=== PATIENT | female | born 1975 | race Caucasian/White ===

== ENCOUNTER 2017-06-07 23:13 | Emergency (ER) | payer MEDICARE ==
[2017-06-07 23:21] VITALS: TEMP 98
[2017-06-08] MEDS ORDERED: AMOXIC-POT CLAV 875MG STARTER 2 EACH TABLET PO STA (00:40)
--- NOTE | 2017-06-08 00:41 | ED ---
Animal Bite HPI - General Chief Complaint: Animal Bite Stated Complaint: R hand laceration Time Seen by Provider: 06/07/17 23:47 Source: patient, family Mode of arrival: ambulatory Limitations: no limitations - History of Present Illness Initial Comments: 42-year-old female patient presents for evaluation of a dog bite to the middle finger on her right hand. Patient states that she was attempting to break up a fight between her new dog and cat when the dog bit her. She states that this occurred around 8 PM. She states that she did clean the wounds however was unable to get the proximal wound to stop bleeding. States she did hold pressure , elevated the hand, and applied ice however this did not work. She denies any use of anticoagulants or blood thinners. She denies any limited range of motion to the finger. She denies any significant pain. She states the animal is up-to-date on his vaccinations. Patient denies any headache, neck pain, back pain, chest pain, shortness of breath, dizziness, weakness, abdominal pain , nausea, vomiting, or difficulties with bowel movements or urination. - Related Data Previous Rx's Medication Instructions Recorded Amoxic-Pot Clav 875-125Mg 1 tab PO Q12HR #20 tablet 06/08/17 [Augmentin 875-125] Allergies Allergy/AdvReac Type Severity Reaction Status Date / Time red dye Allergy Rash/Hives Verified 06/07/17 23:21 Review of Systems ROS Statement: Those systems with pertinent positive or pertinent negative responses have been documented in the HPI. ROS Other: All systems not noted in ROS Statement are negative. Past Medical History Past Medical History: No Reported History History of Any Multi-Drug Resistant Organisms: None Reported Past Surgical History: Section, Tonsillectomy Past Psychological History: No Psychological Hx Reported Smoking Status: Current every day smoker Past Alcohol Use History: None Reported Past Drug Use History: None Reported General Exam Limitations: no limitations General appearance: alert, in no apparent distress, other (This is a well- developed, well-nourished adult female patient in no acute distress. Vital signs upon presentation her temperature 90.8F, pulse 100, respirations 20, blood pressure 169/84, pulse ox 100% on room air.) Eye exam: Present: normal appearance, PERRL, EOMI. Absent: scleral icterus, conjunctival injection, periorbital swelling Respiratory exam: Present: normal lung sounds bilaterally. Absent: respiratory distress, wheezes, rales, rhonchi, stridor Cardiovascular Exam: Present: regular rate, normal rhythm, normal heart sounds. Absent: systolic murmur, diastolic murmur, rubs, gallop, clicks Extremities exam: Present: full ROM, tenderness (Tenderness over the distal aspect of the third finger on the right hand.), normal capillary refill, other ( 20.5 cm lacerations noted to the distal third finger on the right hand. Proximal wound does exhibit some bleeding. Skin otherwise is pink, warm, and dry. Cap refill less than 3 seconds. Patient exhibits full range of motion without pain or limitation. No bony tenderness. Radial pulse is intact and 2+ bilaterally.). Absent: pedal edema, joint swelling, calf tenderness Neurological exam: Present: alert, oriented X3, CN II-XII intact Psychiatric exam: Present: normal affect, normal mood Skin exam: Present: warm, dry, intact, normal color. Absent: rash Course Vital Signs 06/07/17 06/08/17 23:17 01:11 Temperature 98 F 98 F Pulse Rate 100 84 Respiratory 20 18 Rate Blood Pressure 169/84 137/75 O2 Sat by Pulse 100 97 Oximetry Medical Decision Making - Medical Decision Making 42-year-old female patient presents for evaluation after she was bit by her dog and unable to get the bleeding to stop. Wounds to the third finger right hand were irrigated extensively. Pressure was held over the proximal laceration for 15 minutes. Monitored for approximately 30 minutes without any further bleeding. Patient was given a dressing and a splint for comfort. She was started on Augmentin here in the department and given a prescription. She is educated regarding signs or symptoms of infection. She is instructed to follow- up with her primary care physician for recheck in 1-2 days. She is instructed to return here immediately for any new, worsening, or concerning symptoms. She verbalized understanding and agree with this plan. Disposition Clinical Impression: Dog bite of middle finger Disposition: HOME SELF-CARE Condition: Good Instructions: Animal Bite (ED) Additional Instructions: Use splint for protection. Take medications as directed. Follow-up with her primary care physician for recheck in 1-2 days. Monitor for signs or symptoms of infection including redness, increased swelling, drainage of pus, fever, or chills. Return here immediately for any new, worsening, or concerning symptoms. Prescriptions: Amoxic-Pot Clav 875-125Mg [Augmentin 875-125] 1 tab PO Q12HR #20 tablet Referrals: None,Stated [Primary Care Provider] - 1-2 days Time of Disposition: 00:41
[2017-06-08 01:12] VITALS: BP 137/75; PULSE 84; RESP 18
== END 2017-06-08 01:12 | disposition home or self-care (01) ==
LOC: EC 23:13
DX: S61.252A Open bite of right middle finger without damage to nail, initial encounter (principal); F17.200 Nicotine dependence, unspecified, uncomplicated; Z91.048 Other nonmedicinal substance allergy status; W54.0XXA Bitten by dog, initial encounter; Y93.89 Activity, other specified
CPT/HCPCS: 99283

== ENCOUNTER → 2019-03-15 | Outpatient (CLI) | payer MEDICARE ==
--- NOTE | 2019-03-15 15:59 | MR ---
EXAMINATION TYPE: MR brain wo con DATE OF EXAM: 03/15/2019 COMPARISON: NONE HISTORY: Vasovagal syncope per order. Abnormal EKG per patient. TECHNIQUE: Multiplanar, multisequence imaging of the brain and brainstem is performed without IV cont rast. FINDINGS: Diffusion weighted images demonstrate no evidence of a recent infarct or other diffusion abnormality. There is no worrisome extra-axial fluid collection. There is mild ventricular and sulcal prominence. There is wear focus of T2 hyperintensity scattered throughout the white matter. Less than 5 lesions a re felt present. Midline structures demonstrate empty sella morphology. The craniocervical junction appears within no rmal limits. Normal vascular flow voids are present. Nasal septum is slightly deviated to right of mi dline. There is mild mucosal thickening involving anterior ethmoid sinuses bilaterally. Remainder par anasal sinuses are clear. Mild slight symmetric prominence of CSF surrounding optic nerves is seen bi laterally. Globes remain normal rounded shape without suspicious outpouching to suggest intracranial hypotension. IMPRESSION: Mild generalized cerebral atrophy with mild to minimal chronic small vessel ischemic [place], other findings as noted above.
--- NOTE | 2019-03-16 07:08 | US ---
EXAMINATION TYPE: US carotid duplex BILAT DATE OF EXAM: 03/15/2019 COMPARISON: NONE CLINICAL HISTORY: R55 Vasovagal Syncope. Syncope EXAM MEASUREMENTS: RIGHT: Peak Systolic Velocity (PSV) cm/sec ----- Right CCA: 69.2 ----- Right ICA: 147.0 ----- Right ECA: 85.2 ICA/CCA ratio: 2.1 RIGHT: End Diastole cm/sec ----- Right CCA: 14.0 ----- Right ICA: 66.2 ----- Right ECA: 15.4 LEFT: Peak Systolic Velocity (PSV) cm/sec ----- Left CCA: 91.0 ----- Left ICA: 151.2 ----- Left ECA: 73.7 ICA/CCA ratio: 1.7 LEFT: End Diastole cm/sec ----- Left CCA: 31.4 ----- Left ICA: 60.7 ----- Left ECA: 22.0 VERTEBRALS (direction of flow): Right Vertebral: Antegrade Left Vertebral: Antegrade Rhythm: Normal Grayscale atheromatous plaquing is noted. IMPRESSION: Stenosis of 50-69% within both internal carotid arteries, right greater than left. CTA n hazel could more accurately assess the degree of stenosis. Criteria for Assigning % of Stenosis / Diameter reduction (Estimation based on the indirect measurements of the internal carotid artery velocities (ICA PSV). 1. Normal (no stenosis)=ICA PSV < 125 cm/s: ratio < 2.0: ICA EDV<40 cm/s. 2. Less than 50% stenosis=ICA PSV < 125 cm/s: ratio < 2.0: ICA EDV<40 cm/s. 3. 50 to 69% stenosis=ICA PSV of 125 to 230 cm/s: ration 2.0 ? 4.0: ICA EDV 40-100 cm/s. 4. Greater than 70% stenosis to near occlusion= ICA PSV > 230 cm/s: ratio > 4.0: ICA EDV > 100 cm/s. 5. Near occlusion= ICA PSV velocities may be low or undetectable: variable ratio and ICA EDV. 6. Total occlusion=unable to detect flow.
== END | disposition home or self-care (01) ==
LOC: RADMRIMAIN 15:11
PROVIDERS: ATTEND Psychiatry & Neurology Neurology
DX: G31.9 Degenerative disease of nervous system, unspecified (principal); I67.82 Cerebral ischemia; I65.23 Occlusion and stenosis of bilateral carotid arteries
CPT/HCPCS: 70551; 93880

== ENCOUNTER → 2019-04-13 | Outpatient (CLI) | payer MEDICARE ==
--- NOTE | 2019-04-13 17:28 | CT ---
EXAMINATION TYPE: CT angio neck DATE OF EXAM: 04/13/2019 HISTORY: dizziness, vertigo, syncopal episode. abnormal carotid US. COMPARISON: Ultrasound carotid arteries 03/15/2019 CT DLP: 857.7 mGycm. Automated Exposure Control for Dose Reduction was Utilized. TECHNIQUE: CTA scan of the neck is performed with IV Contrast, patient injected with 50cc mL of Isov ue 370, axial images are obtained, coronal and sagittal reformatted images are reviewed. Three-D alex nstructed images are created on an independent workstation and reviewed. Source images are reviewed. FINDINGS: Carotid/Vascular Structures: There is a three-vessel arch. The common carotid arteries appear normal. Significant narrowing of the internal carotid arteries are not identified on the Three-D reconstruct ed images performed on a separate computer by the technologist. Source images are reviewed. The verte bral arteries are codominant. No significant narrowing at the bifurcation is evident on the source im ages. Elevated velocities on the ultrasound cannot be explained on the basis of this exam. Other: Lung apices within the [id number] are clear. Mild degenerative changes within the [place] cervical spine. Mild degenerative disc change may be present. IMPRESSION: 1. No flow-limiting stenosis bilateral carotid bifurcations.
== END | disposition home or self-care (01) ==
LOC: RADCTMAIN 14:12
PROVIDERS: ATTEND Psychiatry & Neurology Neurology
DX: R55 Syncope and collapse (principal); R93.89 Abnormal findings on diagnostic imaging of other specified body structures
CPT/HCPCS: 70498; Q9967

== ENCOUNTER 2019-08-23 15:54 | Emergency (ER) | payer MEDICARE ==
[2019-08-23 16:15] VITALS: RESP 20; TEMP 97.4
[2019-08-23] MEDS ORDERED: SODIUM CHLORIDE 0.9% 500 ML 500 ML IV STA (16:51)
[2019-08-23] MEDS ORDERED: FAMOTIDINE 20 MG/2 ML VIAL IV STA (16:51)
[2019-08-23] MEDS ORDERED: SODIUM CHLORIDE 0.9% 1,000 ML IV STA (16:51)
[2019-08-23] MEDS ORDERED: ONDANSETRON 4 MG/2 ML VIAL IVP STA ×2 (16:51→18:05)
--- NOTE | 2019-08-23 16:55 | ED ---
General Adult HPI - General Chief complaint: Nausea/Vomiting/Diarrhea Stated complaint: Vomiting Time Seen by Provider: 08/23/19 16:38 Source: patient, family, RN notes reviewed Mode of arrival: wheelchair Limitations: language barrier (Patient reads lips however is able to communicate well.) - History of Present Illness Initial comments: patient is a pleasant 44-year-old female presenting to the emergency department with nausea vomiting. Onset was around 10 AM. Patient has had multiple episodes of vomiting and remains nauseated. Patient has had similar symptoms every couple weeks the past 2 years.patient has seen her primary care physician or this and has been told is related to menopause. Patient has not seen a senior systems software engineer for this however. No significant abdominal pain. Occasional cramping that is mild. No constipation or diarrhea. No fevers. - Related Data Previous Rx's Medication Instructions Recorded Amoxic-Pot Clav 875-125Mg 1 tab PO Q12HR #20 tablet 06/08/17 [Augmentin 875-125] Allergies Allergy/AdvReac Type Severity Reaction Status Date / Time red dye Allergy Rash/Hives Verified 08/23/19 16:10 Review of Systems ROS Statement: Those systems with pertinent positive or pertinent negative responses have been documented in the HPI. ROS Other: All systems not noted in ROS Statement are negative. Constitutional: Denies: fever Eyes: Denies: eye pain ENT: Denies: ear pain Respiratory: Denies: cough Cardiovascular: Denies: chest pain Endocrine: Denies: fatigue Gastrointestinal: Reports: nausea, vomiting Genitourinary: Denies: dysuria Musculoskeletal: Denies: back pain Skin: Denies: rash Neurological: Denies: weakness Past Medical History Past Medical History: No Reported History Additional Past Medical History / Comment(s): hearing impaired (reads lips) History of Any Multi-Drug Resistant Organisms: None Reported Past Surgical History: Section, Tonsillectomy Past Psychological History: No Psychological Hx Reported Smoking Status: Current some day smoker Past Alcohol Use History: None Reported Past Drug Use History: None Reported General Exam Limitations: no limitations General appearance: alert, in no apparent distress Head exam: Present: normocephalic Eye exam: Present: normal appearance Neck exam: Present: normal inspection Respiratory exam: Present: normal lung sounds bilaterally Cardiovascular Exam: Present: regular rate, normal rhythm Expanded Peripheral pulses: 2+: Dorsalis Pedis (R), Dorsalis Pedis (L) GI/Abdominal exam: Present: soft, normal bowel sounds. Absent: distended, tenderness, guarding, rebound, rigid, pulsatile mass Extremities exam: Present: normal inspection Neurological exam: Present: alert Psychiatric exam: Present: normal affect, normal mood Skin exam: Present: normal color Course Vital Signs 08/23/19 16:11 Temperature 97.4 F L Pulse Rate 87 Respiratory 20 Rate Blood Pressure 159/83 O2 Sat by Pulse 97 Oximetry Medical Decision Making - Medical Decision Making Patient reevaluated and resting comfortably in bed. Patient is no longer vomiting however still has some mild nausea. Patient is receptive to repeat medication however request discharge home. Patient and family updated on results. - Lab Data Result diagrams: 08/23/19 17:00 08/23/19 17:00 Lab Results 08/23/19 08/23/19 08/23/19 Range/Units 17:00 17:00 17:00 WBC 9.4 (3.8-10.6) k/uL RBC 5.25 (3.80-5.40) m/uL Hgb 15.8 (11.4-16.0) gm/dL Hct 46.7 H (34.0-46.0) % MCV 88.9 (80.0-100.0) fL MCH 30.1 (25.0-35.0) pg MCHC 33.9 (31.0-37.0) g/dL RDW 13.1 (11.5-15.5) % Plt Count 426 (150-450) k/uL Neutrophils % 80 % Lymphocytes % 13 % Monocytes % 5 % Eosinophils % 1 % Basophils % 0 % Neutrophils # 7.5 (1.3-7.7) k/uL Lymphocytes # 1.3 (1.0-4.8) k/uL Monocytes # 0.5 (0-1.0) k/uL Eosinophils # 0.1 (0-0.7) k/uL Basophils # 0.0 (0-0.2) k/uL Sodium 141 (137-145) mmol/L Potassium 4.3 (3.5-5.1) mmol/L Chloride 108 H (98-107) mmol/L Carbon Dioxide 23 (22-30) mmol/L Anion Gap 10 mmol/L BUN 7 (7-17) mg/dL Creatinine 0.62 (0.52-1.04) mg/dL Est GFR (CKD-EPI)AfAm >90 (>60 ml/min/1.73 sqM) Est GFR (CKD-EPI)NonAf >90 (>60 ml/min/1.73 sqM) Glucose 114 H (74-99) mg/dL Calcium 10.0 (8.4-10.2) mg/dL Total Bilirubin 0.7 (0.2-1.3) mg/dL AST 20 (14-36) U/L ALT 15 (4-34) U/L Alkaline Phosphatase 95 (38-126) U/L Total Protein 7.7 (6.3-8.2) g/dL Albumin 4.5 (3.5-5.0) g/dL Amylase 40 (30-110) U/L Lipase 45 (23-300) U/L Urine Color Light Brown Urine Appearance Cloudy H (Clear) Urine pH 8.5 H (5.0-8.0) Ur Specific [place] 1.020 (1.001-1.035) Urine Protein 3+ H (Negative) Urine Glucose (UA) Negative (Negative) Urine Ketones 2+ H (Negative) Urine Blood Large H (Negative) Urine Nitrite Negative (Negative) Urine Bilirubin Negative (Negative) Urine Urobilinogen <2.0 (<2.0) mg/dL Ur Leukocyte Esterase Small H (Negative) Urine RBC >182 H (0-5) /hpf Urine WBC 32 H (0-5) /hpf Ur Squamous Epith Cells 11 H (0-4) /hpf Urine Mucus Moderate H (None) /hpf Disposition Clinical Impression: Dehydration, Vomiting Disposition: HOME SELF-CARE Condition: Stable Instructions (If sedation given, give patient instructions): Acute Nausea and Vomiting (ED) Additional Instructions: please follow-up with primary care physician in the next couple days for recheck. Also consider follow-up with gastroenterology for further evaluation. Return for uncontrolled vomiting, abdominal pain or fever, worsening symptoms or other concerns. Is patient prescribed a controlled substance at d/c from ED?: No Referrals: Nik Pratt DO [Primary Care Provider] - 1-2 days Leslie Sher MD [STAFF PHYSICIAN] - 1-2 days Time of Disposition: 18:06
[2019-08-23 17:18] LABS: Basophils % (A) 0 %; Eosinophils # (A) 0.1 k/uL (0-0.7); Eosinophils % (A) 1 %; HCT 46.7 % (34.0-46.0); HGB 15.8 gm/dL (11.4-16.0); Lymphocytes # (A) 1.3 k/uL (1.0-4.8); Lymphocytes % (A) 13 %; MCH 30.1 pg (25.0-35.0); MCHC 33.9 g/dL (31.0-37.0); MCV 88.9 fL (80.0-100.0); Mean Platelet Volume 7.5; Monocytes # (A) 0.5 k/uL (0-1.0); Monocytes % (A) 5 %; Neutrophils # (A) 7.5 k/uL (1.3-7.7); Neutrophils % (A) 80 %; Platelet Count 426 k/uL (150-450); RBC 5.25 m/uL (3.80-5.40); RDW 13.1 % (11.5-15.5); WBC 9.4 k/uL (3.8-10.6)
[2019-08-23 17:21] LABS: Appearance,Urine Cloudy (Clear); Bilirubin,Urine Negative (Negative); Blood,Urine Large (Negative); Color,Urine Light Brown; Glucose,Urine (UA) Negative (Negative); Ketones,Urine 2+ (Negative); Leukocyte Esterase,Urine Small (Negative); Mucus,Urine Moderate /hpf; Nitrite,Urine Negative (Negative); PH, Urine 8.5 (5.0-8.0); Protein,Urine 3+ (Negative); RBC,Urine >182 /hpf (0-5); Squamous Epithelial Cell,Urine 11 /hpf (0-4); Urobilinogen,Urine <2.0 mg/dL (<2.0); WBC,Urine 32 /hpf (0-5)
[2019-08-23 17:22] LABS: ALT 15 U/L (4-34); AST 20 U/L (14-36); African American GFR (CKD) >90 (>60 ml/min/1.73 sqM); Albumin 4.5 g/dL (3.5-5.0); Alkaline Phosphatase 95 U/L (38-126); Amylase 40 U/L (30-110); Anion Gap 10 mmol/L; Blood Urea Nitrogen 7 mg/dL (7-17); Carbon Dioxide 23 mmol/L (22-30); Chloride 108 mmol/L (98-107); Glucose 114 mg/dL (74-99); Non-African American GFR(CKD) >90 (>60 ml/min/1.73 sqM); Potassium 4.3 mmol/L (3.5-5.1); Sodium 141 mmol/L (137-145); Total Bilirubin 0.7 mg/dL (0.2-1.3); Total Protein 7.7 g/dL (6.3-8.2)
[2019-08-23] MEDS ORDERED: ONDANSETRON 4 MG ODT STARTER PACK 2 TAB BTL PO STA (18:05)
[2019-08-23 18:30] VITALS: BP 149/84; PULSE 82
== END 2019-08-23 18:34 | disposition home or self-care (01) ==
LOC: EC 15:54
DX: E86.0 Dehydration (principal); R11.2 Nausea with vomiting, unspecified; H93.01 Transient ischemic deafness; F17.200 Nicotine dependence, unspecified, uncomplicated; Z78.0 Asymptomatic menopausal state; Z91.041 Radiographic dye allergy status
CPT/HCPCS: 36415; 80053; 82150; 83690; 85025; 81001; 87086; 96374; 96375; 96376; 96361; 99284; J2405; S0119

== ENCOUNTER 2019-10-08 23:30 | Emergency (ER) | payer MEDICARE ==
[2019-10-08] MEDS ORDERED: HYDROmorphone 1 MG/ML 1 ML SYRINGE IM STA (23:39)
[2019-10-08 23:40] VITALS: BP 142/87; PULSE 108; RESP 18; TEMP 98.3
[2019-10-08] MEDS ORDERED: LIDOCAINE 1%-EPI 1:100,000 20 ML VIAL SQ STA (23:41)
--- NOTE | 2019-10-08 23:44 | ED ---
Upper Extremity HPI - General Stated Complaint: L Arm Pain Time Seen by Provider: 10/08/19 23:35 Source: patient, family, RN notes reviewed, old records reviewed Mode of arrival: wheelchair Limitations: no limitations - History of Present Illness Initial Comments: This is a 44-year-old female to the ER with Left wrist pain. Patient is deaf so poor historian history of presented for family member patient has severe severe left wrist pain after fall patient a mechanical fall trip and fall patient did fall over the deltoid. Patient did not hit her head no loss of consciousness no blood thinners. MD Complaint: Injury to:: left, wrist -: minutes(s) Other Extremity Injury: Wrist: Left Other Injuries: none Handedness: right Place: home Severity scale (1-10): 10 Improves With: immobilization Worsens With: none Context: fall Associated Symptoms: denies other symptoms - Related Data Previous Rx's Medication Instructions Recorded Amoxic-Pot Clav 875-125Mg 1 tab PO Q12HR #20 tablet 06/08/17 [Augmentin 875-125] Allergies Allergy/AdvReac Type Severity Reaction Status Date / Time No Known Allergies Allergy Verified 10/08/19 23:40 Review of Systems ROS Statement: Those systems with pertinent positive or pertinent negative responses have been documented in the HPI. ROS Other: All systems not noted in ROS Statement are negative. Past Medical History Past Medical History: No Reported History Additional Past Medical History / Comment(s): hearing impaired (reads lips) History of Any Multi-Drug Resistant Organisms: None Reported Past Surgical History: Section, Tonsillectomy Past Psychological History: No Psychological Hx Reported Smoking Status: Current some day smoker Past Alcohol Use History: None Reported Past Drug Use History: None Reported General Exam Limitations: no limitations General appearance: alert, in no apparent distress, anxious Head exam: Present: atraumatic, normocephalic, normal inspection Eye exam: Present: normal appearance, PERRL, EOMI. Absent: scleral icterus, conjunctival injection, periorbital swelling ENT exam: Present: normal exam, mucous membranes moist Neck exam: Present: normal inspection. Absent: tenderness, meningismus, lymphadenopathy Respiratory exam: Present: normal lung sounds bilaterally. Absent: respiratory distress, wheezes, rales, rhonchi, stridor Cardiovascular Exam: Present: normal rhythm, tachycardia, normal heart sounds. Absent: systolic murmur, diastolic murmur, rubs, gallop, clicks GI/Abdominal exam: Present: soft, normal bowel sounds. Absent: distended, tenderness, guarding, rebound, rigid Extremities exam: Present: normal inspection, full ROM, tenderness (Left Wrist), normal capillary refill, other (deformity). Absent: pedal edema, joint swelling, calf tenderness Back exam: Present: normal inspection Neurological exam: Present: alert, oriented X3, CN II-XII intact Psychiatric exam: Present: normal affect, normal mood Skin exam: Present: warm, dry, intact, normal color. Absent: rash Course Vital Signs 10/08/19 23:38 Temperature 98.3 F Pulse Rate 108 H Respiratory 18 Rate Blood Pressure 142/87 O2 Sat by Pulse 96 Oximetry - Reevaluation(s) Reevaluation #1: 10/09/19 00:21 Records reviewed Reevaluation #2: 10/09/19 00:21 patient has Pain control Procedures - Orthopedic Fracture Reduction Fracture #1 Consent Obtained: verbal consent Side: left Fracture Reduction Location: radius, ulna Analgesia: hematoma block Technique: direct manipulation Post Reduction X-rays Demonstrate: anatomical reduction Post-Reduction Neuro Exam: intact Post-Reduction Vascular Exam: intact Splint Applied: Yes Patient Tolerated Procedure: well Medical Decision Making - Medical Decision Making 44 female status post fall patient has left radius fracture with comminution and displacement fracture is relocated here in the ER splinted patient discharged home with pain control - Radiology Data Radiology results: report reviewed (X-ray left wrist shows significant comminuted and angulated fracture, postreduction films improved), image reviewed Disposition Clinical Impression: Fracture of left distal radius, Fall Disposition: HOME SELF-CARE Condition: Good Instructions (If sedation given, give patient instructions): Arm Fracture in Adults (ED) Is patient prescribed a controlled substance at d/c from ED?: No Referrals: Roosevelt Ward DO [Doctor of Osteopathic Medicine] - 1-2 days
--- NOTE | 2019-10-08 23:52 | XR ---
EXAMINATION TYPE: XR wrist complete LT DATE OF EXAM: 10/08/2019 COMPARISON: NONE HISTORY: Left wrist pain. Fall. TECHNIQUE: 3 views FINDINGS: There is impacted comminuted transverse fracture of the distal radial metaphysis. There is mild anter ior angulation at the fracture site. There is no dislocation. Carpal bones appear intact. Metacarpals are intact. IMPRESSION: Comminuted impacted angulated fracture distal radius.
[2019-10-09] MEDS ORDERED: HYDROcodone/APAP 5-325MG 1 EACH TAB PO STA (00:24)
[2019-10-09] MEDS ORDERED: ACET/COD 300 MG/30 MG STARTER PACK 6 TAB BTL PO STA (00:24)
--- NOTE | 2019-10-09 00:26 | XR ---
EXAMINATION TYPE: XR wrist limited LT DATE OF EXAM: 10/09/2019 COMPARISON: Yesterday HISTORY: Post reduction TECHNIQUE: FINDINGS: 2 views were obtained and show satisfactory reduction of the comminuted impacted distal rad ius fracture. Fracture line extends to the radiocarpal joint. There is no dislocation. There is satis factory alignment. IMPRESSION: Satisfactory reduction. There is large fracture fragment extending posteriorly into the s oft tissues
[2019-10-09] MEDS ORDERED: ONDANSETRON 4 MG ODT STARTER PACK 2 TAB BTL PO STA (00:27)
[2019-10-09] MEDS ORDERED: ONDANSETRON 4 MG TAB PO STA (00:27)
== END 2019-10-09 00:42 | disposition home or self-care (01) ==
LOC: EC 23:30
DX: S52.592A Other fractures of lower end of left radius, initial encounter for closed fracture (principal); H91.90 Unspecified hearing loss, unspecified ear; F17.200 Nicotine dependence, unspecified, uncomplicated; W01.0XXA Fall on same level from slipping, tripping and stumbling without subsequent striking against object, initial encounter
CPT/HCPCS: 73100; 73110; 99284; 25605; 96372; J1170; S0119

== ENCOUNTER 2019-10-09 14:01 | Emergency (ER) | payer MEDICARE ==
[2019-10-09 14:28] VITALS: BP 173/87; PULSE 106; RESP 20; TEMP 98.2
[2019-10-09] MEDS ORDERED: ONDANSETRON 4 MG/2 ML VIAL IM STA (14:50)
[2019-10-09] MEDS ORDERED: KETOROLAC 30 MG/ML 1 ML VIAL IM STA (14:50)
--- NOTE | 2019-10-09 15:15 | XR ---
EXAMINATION TYPE: XR wrist complete LT DATE OF EXAM: 10/09/2019 CLINICAL HISTORY: Left wrist pain after reduction yesterday. TECHNIQUE: Frontal, lateral and oblique images of the left wrist are obtained. COMPARISON: None FINDINGS: Similar alignment of the comminuted distal radial metaphyseal fracture with overlying soft tissue swelling that has increased from the prior. Mild positive ulnar variance. No additional fractu re seen. Overlying casting or splinting material. IMPRESSION: Similar alignment of the comminuted known distal metaphyseal fracture of the left wrist w ith increased soft tissue swelling in comparison to the prior of 10/09/2019.
--- NOTE | 2019-10-09 15:17 | XR ---
EXAMINATION TYPE: XR shoulder complete LT DATE OF EXAM: 10/09/2019 CLINICAL HISTORY: Left shoulder pain after injury TECHNIQUE: Three views of the left shoulder are obtained. COMPARISON: None. FINDINGS: The left shoulder appears in internal rotation on both views that could relate to patient p ain or posterior dislocation. There is overlap of the humeral head with the scapula on the Y view and therefore dislocation is unlikely. Osseous mineralization is within normal limits. Soft tissues are unremarkable. IMPRESSION: External rotation left shoulder x-ray is recommended to ensure no posterior dislocation, although unlikely.
--- NOTE | 2019-10-09 15:29 | ED ---
General Adult HPI - General Chief complaint: Fall Stated complaint: Arm pain Time Seen by Provider: 10/09/19 14:30 Source: patient, RN notes reviewed Mode of arrival: ambulatory Limitations: no limitations - History of Present Illness Initial comments: 44-year-old female presents to the emergency department for left wrist pain. Patient states that yesterday she tripped over her son's headphones and fell back onto her left wrist. No other injuries. Patient states this was reduced yesterday however today she thinks the cast is too tight. States that she has numbness and tingling in the fingers of the left hand. States the pain has increased. Patient states that she has vomited because of the pain medication. Patient fell again today after she hit her arm and tripped getting out of bed. This caused her left shoulder pain as well.Patient has no other complaints at this time including shortness of breath, chest pain, abdominal pain, nausea or vomiting, headache, or visual changes. - Related Data Previous Rx's Medication Instructions Recorded Amoxic-Pot Clav 875-125Mg 1 tab PO Q12HR #20 tablet 06/08/17 [Augmentin 875-125] HYDROcodone/APAP 5-325MG [[place] 1 tab PO Q6HR PRN #10 tab 10/09/19 5-325] Allergies Allergy/AdvReac Type Severity Reaction Status Date / Time No Known Allergies Allergy Verified 10/09/19 14:26 Review of Systems ROS Statement: Those systems with pertinent positive or pertinent negative responses have been documented in the HPI. ROS Other: All systems not noted in ROS Statement are negative. Past Medical History Past Medical History: No Reported History Additional Past Medical History / Comment(s): hearing impaired (reads lips) History of Any Multi-Drug Resistant Organisms: None Reported Past Surgical History: Section, Tonsillectomy Past Psychological History: No Psychological Hx Reported Smoking Status: Current some day smoker Past Alcohol Use History: None Reported Past Drug Use History: None Reported General Exam - General Exam Comments Initial Comments: Splint currently applied. Fingers are edematous in the left hand with minimal sensation, however capillary refill less than 2 seconds. Splint was unwrapped and swelling improved in the left hand. Capillary refill less than 2 seconds. Radial pulses 2+ in the left upper extremity. NV intact. No lacerations noted of the left wrist. This was resplinted Limitations: no limitations General appearance: alert, in no apparent distress Head exam: Present: atraumatic, normocephalic, normal inspection Eye exam: Present: normal appearance, PERRL, EOMI. Absent: scleral icterus, conjunctival injection, periorbital swelling ENT exam: Present: normal exam, mucous membranes moist Neck exam: Present: normal inspection, full ROM. Absent: tenderness, meningismus, lymphadenopathy Respiratory exam: Present: normal lung sounds bilaterally. Absent: respiratory distress, wheezes, rales, rhonchi, stridor Cardiovascular Exam: Present: regular rate, normal rhythm, normal heart sounds. Absent: systolic murmur, diastolic murmur, rubs, gallop, clicks Course Vital Signs 10/09/19 14:23 Temperature 98.2 F Pulse Rate 106 H Respiratory 20 Rate Blood Pressure 173/87 O2 Sat by Pulse 95 Oximetry Procedures - Orthopedic Splinting/Casting Injury #1 Side: left Upper Extremity Injury Location: wrist Upper Extremity Immobilizer: volar splint Additional Comments: Neurovascular status intact after splint applied Medical Decision Making - Medical Decision Making X-rays from yesterday were reviewed. Prereduction x-ray showed a comminuted impacted angulated fracture of the distal radius. Postreduction x-ray of the left wrist shows a satisfactory reduction with large fracture fragment extending posteriorly into the soft tissues. 44-year-old presents for increased pain in the left wrist. Patient thinks splint is wrapped too tightly. Patient has edematous fingers of the left hand with diminished sensation however capillary refill less than 2 seconds. Splint was unwrapped. Patient had significant improvement in symptoms. Full sensation in fingers capillary refill less than 2 seconds and radial pulse 2+. Patient able to move all fingers. Splint was reapplied and loosely wrapped. Wrist x- ray repeated today shows similar alignment of the comminuted known distal metaphyseal fracture of the left wrist with increased soft tissue swelling in comparison. She was given Zofran and Toradol here in the emergency department. She will continue pain medications at home. She'll follow up with orthopedics tomorrow. She'll return if she has any worsening symptoms. X-ray of the left shoulder shows external rotation recommended to ensure no posterior dislocation although unlikely. X-ray of the left shoulder was repeated, no evidence of dislocation. External rotation appears appropriate. Disposition Clinical Impression: Distal radius fracture, left Disposition: HOME SELF-CARE Condition: Good Instructions (If sedation given, give patient instructions): Wrist Fracture in Adults (ED) Additional Instructions: Take Glady as needed for pain. Do not drive or operative machinery while taking this. Please follow up with orthopedics first thing tomorrow morning. If patient has any worsening symptoms return here immediately to the emergency department. Prescriptions: HYDROcodone/APAP 5-325MG [Glady 5-325] 1 tab PO Q6HR PRN #10 tab PRN Reason: Pain Is patient prescribed a controlled substance at d/c from ED?: Yes When asked, does pt state using other controlled substances?: No If prescribed controlled substance>3 days was MAPS reviewed?: Prescribed <3 Days If opioid is for acute pain is fill amount 7 days or less?: Yes If Rx opioid, was Start Talking consent form obtained?: Yes Referrals: Nik Pratt DO [Primary Care Provider] - 1-2 days Roosevelt Ward DO [Doctor of Osteopathic Medicine] - 1-2 days Time of Disposition: 16:05
--- NOTE | 2019-10-09 15:50 | XR ---
EXAMINATION TYPE: XR shoulder limited LT DATE OF EXAM: 10/09/2019 CLINICAL HISTORY: Single view TECHNIQUE: Single frontal view of the left shoulder in external rotation. COMPARISON: Left shoulder radiographs dated 10/09/2019 FINDINGS: There is appropriate external rotation excluding shoulder dislocation. IMPRESSION: No evidence of dislocation of the left shoulder. External rotation appears appropriate.
[2019-10-09] MEDS ORDERED: MORPHINE SULFATE 4 MG/ML SYRINGE IM STA (15:53)
== END 2019-10-09 16:10 | disposition home or self-care (01) ==
LOC: EC 14:01
DX: Z46.89 Encounter for fitting and adjustment of other specified devices (principal); S52.592D Other fractures of lower end of left radius, subsequent encounter for closed fracture with routine healing; M25.512 Pain in left shoulder; H91.93 Unspecified hearing loss, bilateral; F17.200 Nicotine dependence, unspecified, uncomplicated; W01.0XXD Fall on same level from slipping, tripping and stumbling without subsequent striking against object, subsequent encounter; W18.09XA Striking against other object with subsequent fall, initial encounter; Y93.89 Activity, other specified
CPT/HCPCS: 73030; 73020; 73110; 99284; 96372 ×3; J2270; J2405; J1885

== ENCOUNTER 2019-10-14 14:18 | Day surgery (SDC) | payer MEDICARE ==
[2019-10-12 15:00] VITALS: BMI 34.4
[~2019-10-14 14:18] MED LIST: DEXAMETHASONE SOD PHOSPHATE 10 MG/ML 1 ML VIAL IV ONE; LACTATED RINGERS 1,000 ML IV SCH; LIDOCAINE 1% 20 ML VIAL (10MG/ML) FOR IV START INTRADERMA PRN; SCOPOLAMINE 1.5MG/72HR PATCH TRANSDERM ONE
[2019-10-14 14:53] VITALS: TEMP 98.4
[2019-10-14] MEDS ORDERED: ONDANSETRON 4 MG/2 ML VIAL IVP ONE ×3 (15:10→21:45)
[2019-10-14 15:19] LABS: Glucose,Whole Blood 96 mg/dL (75-99)
[2019-10-14] MEDS ORDERED: MIDAZOLAM 2 MG/2 ML VIAL IV ONE (15:24)
[2019-10-14] MEDS ORDERED: PROPOFOL 10 MG/ML 20 ML VIAL IV ONE (15:36)
[2019-10-14] MEDS ORDERED: SUCCINYLCHOLINE CHLORIDE 100 MG/5 ML SYR IV ONE (15:36)
[2019-10-14] MEDS ORDERED: MIDAZOLAM 2 MG/2 ML VIAL ONE (15:36)
[2019-10-14] MEDS ORDERED: LIDOCAINE 1% INJ 10MG/ML (20 ML MDV) ONE (15:36)
[2019-10-14] MEDS ORDERED: fentaNYL (PF) 50 MCG/ML 2 ML AMP ONE (15:36)
[2019-10-14] MEDS ORDERED: HYDROmorphone (PF) 1 MG/ML ONE (15:36)
[2019-10-14] MEDS ORDERED: LACTATED RINGERS 1,000 ML IV ONE ×4 (16:30→20:15)
[2019-10-14] MEDS ORDERED: LIDOCAINE 1%-EPI 1:100,000 20 ML VIAL SQ ONE ×3 (16:34→18:25)
[2019-10-14] MEDS ORDERED: ROPIVACAINE 5 MG/ML 30 ML VIAL MISCELLANE ONE ×3 (16:34→18:25)
[2019-10-14] MEDS: HYDROmorphone 0.5 MG/0.5 ML SYRINGE IVP PRN ×4 (19:10→20:15)
[2019-10-14] MEDS ORDERED: MEPERIDINE 50 MG/ML SYRINGE IVP ONE (19:30)
[2019-10-14 19:39] LABS: Glucose,Whole Blood 138 mg/dL (75-99)
[2019-10-14 23:09] VITALS: BP 137/87; PULSE 85; RESP 20
--- NOTE | 2019-10-15 15:35 | P.OP ---
Date of Procedure: 10/14/19 Preoperative Diagnosis: Comminuted extra-articular left distal radius fracture Postoperative Diagnosis: Comminuted extra-articular left distal radius fracture Procedure(s) Performed: Open reduction and internal fixation of left distal radius fracture (greater than 3 parts) Implants: Acumed AcuLoc-2 long standard left volar distal radius plate with locking and cortical screws; demineralized bone matrix Anesthesia: GETA, regional Surgeon: Fantasma Gonzalez Estimated Blood Loss (ml): 8 Condition: stable Disposition: PACU Indications for Procedure: The patient is a 44-year-old female who sustained a displaced left distal radius after a mechanical fall. Treatment options (and associated risks and benefits) were discussed in the office and surgical stabilization was recommended. In preop, additional questions were addressed and the patient wished to proceed with surgery. Consent forms were signed. The operative site was confirmed and marked. Operative Findings: Substantial metaphyseal comminution and a paucity of cancellous bone. Description of Procedure: The patient was administered a regional nerve block by the anesthesia team and was then taken to the operating suite. She was positioned supine with the left arm on an arm board. All bony prominences were well-padded. Anesthesia and prophylactic IV antibiotics were administered uneventfully. A tourniquet was applied. The left upper extremity was prepped and draped in standard, sterile fashion. A timeout was performed, confirming patient identifiers, the operative side, the site and the procedure to be performed: all team members expressed agreement. The limb was exsanguinated with an Esmarch and the tourniquet was inflated. Loupe magnification was utilized throughout the case for optimum visualization. A standard volar FCR approach was utilized. The skin was incised sharply, extending obliquely across the volar wrist crease. The subcutaneous tissues were bluntly spread. The radial artery was identified and protected throughout the case. The FCR sheath was incised and the tendon was mobilized. The floor of the sheath was released and blunt dissection proceeded down to the pronator quadratus. There was a transverse, traumatic rent in the muscle belly at the level of the fracture. This was sharply extended along the radial border and the muscle was subperiosteally elevated ulnarly. The fracture site was visualized. There were large butterfly fragments of both the volar and dorsal metaphyses; however, there was substantial comminution dorsally. The radial shaft was grasped with a reduction clamp and rotated to open the fracture site. This was cleaned of hematoma and fibrous tissue. A paucity of metaphyseal cancellous bone was noted. A 0.062 K wire was inserted percutaneously into the radial styloid. A manual reduction maneuver was performed and the wire was advanced across the fracture site. Due to the metaphyseal comminution, this did not afford sufficient stabilization. The wire was removed. The long standard plate was selected and positioned on the volar radius. It was provisionally clamped to the shaft. While stabilizing the proximal fragment, axial load was applied but full religious of radial length was not achieved. The clamp was removed. The plate was repositioned onto the distal fragment (confirmed on imaging) and provisionally pinned in place. Using the plate as a reduction tool, the distal fragment was distracted and the plate was then clamped to the shaft. Residual shortening and malalignment remained. A pointed reduction clamp was introduced percutaneously onto the dorsal rim of the radius, taking care to avoid the extensor tendons. This was then clamped to the plate distally for additional control of the articular fragment. The proximal clamp was loosened and the fracture was re-reduced. Fracture reduction and plate position were assessed on orthogonal imaging and found to be satisfactory. A cortical screw was drilled, measured and inserted to fix the plate proximally. Locking screws were drilled, measured and inserted distally, confirming length and trajectory with fluoroscopy. All clamps and provisional K-wires were removed. An additional cortical screw was drilled and inserted to further secure the plate to the metaphysis. The wound was thoroughly irrigated with normal saline. Good overall religious of the metaphyseal cortical shell was achieved; however, there was still substantial loss of cancellous bone. With such a large void, there was concern for slow healing and potential hardware failure. To promote faster bony healing, demineralized bone matrix (approximally 4 cc) was packed into the defect. Final x-rays were obtained which revealed satisfactory reduction of the fracture. An inclined lateral view was obtained to confirm extra-articular screw placement. The wrist was then ranged under live fluoroscopy - no motion of the fracture fragments or fixation construct was appreciated. There was residual depression of the dorsal metaphyseal cortex. Passive flexion & extension of the fingers and thumb demonstrated no tethering, catching or crepitus. No further fixation was deemed necessary. The tourniquet was released after 117 minutes at 250 mmHg. Excellent hemostasis was obtained with manual pressure and electrocautery. The pronator was loosely repaired over the plate with interrupted 2-0 Vicryl sutures. The subcutaneous tissues were reapproximated with interrupted 3-0 Vicryl sutures. The incision was closed with interrupted 4-0 nylon sutures. Local anesthetic with epinephrine was injected into the perioperative subcutaneous tissues for adjunctive postoperative pain control and hemostasis. Sterile dressings were applied, followed by a short arm volar plaster splint. All sponge, needle and instrument counts were correct at the end of the case. The patient tolerated the procedure well and was taken to the recovery room in stable condition.
--- NOTE | 2019-10-15 18:34 | FL ---
EXAMINATION TYPE: FL guidance operating room, XR forearm LT DATE OF EXAM: 10/14/2019 CLINICAL HISTORY: Fluoroscopy documentation during open reduction internal fixation of the left dista l radius. TECHNIQUE: Fluoroscopy. COMPARISON: None. FINDINGS: Fluoroscopic guidance was provided during procedure performed by Dr. Gonzalez. A total of 59 seconds of fluoroscopic time was utilized during the procedure and 3 spot images was acquired d uring open reduction internal fixation of the left distal radius. IMPRESSION: As Above.
== END 2019-10-14 22:18 | disposition home or self-care (01) ==
LOC: OR 14:18
PROVIDERS: ATTEND Orthopaedic Surgery
DX: S52.552A Other extraarticular fracture of lower end of left radius, initial encounter for closed fracture (principal); W01.0XXA Fall on same level from slipping, tripping and stumbling without subsequent striking against object, initial encounter; E11.9 Type 2 diabetes mellitus without complications; H91.90 Unspecified hearing loss, unspecified ear; R00.2 Palpitations; F17.210 Nicotine dependence, cigarettes, uncomplicated; Z79.891 Long term (current) use of opiate analgesic; Z79.899 Other long term (current) drug therapy; Z98.51 Tubal ligation status; Z98.890 Other specified postprocedural states
CPT/HCPCS: 81025; 73090; 25607; C1713 ×2; J2250; J1100; J2175; J0690; J2405; J2001; J3010; J1170 ×2; J2795; J0330; J2704

== ENCOUNTER 2019-10-18 05:18 | Emergency (ER) | payer MEDICARE ==
[2019-10-18 05:38] VITALS: TEMP 97.6
[2019-10-18] MEDS ORDERED: SODIUM CHLORIDE 0.9% 1,000 ML IV STA (05:43)
[2019-10-18] MEDS ORDERED: PROMETHAZINE INJ 25 MG in SODIUM CHLORIDE 0.9% 50 ML IVPB STA (05:44)
--- NOTE | 2019-10-18 06:05 | ED ---
Nausea/Vomiting/Diarrhea HPI - General Chief complaint: Nausea/Vomiting/Diarrhea Stated complaint: vomiting Time Seen by Provider: 10/18/19 05:43 Source: patient, family Mode of arrival: ambulatory Limitations: no limitations - History of Present Illness Initial comments: This patient is a 44-year-old woman who presents to be evaluated for nausea and vomiting. Patient states that she had what sounds like an ORIF of her left wrist with Dr. Gonzalez on Thursday. The patient notes that she was given Dilaudid which she states she has some gastrointestinal sensitivity to. She then went home and started to have nausea and vomiting which has continued through today. Patient not having hematemesis. No change in bowel movements. No fever or chills. She denies abdominal pain other than stating that when she retches the muscles abdominal sore. MD complaint: nausea, vomiting Onset/Timin -: days(s) Description of Vomiting: food contents, bilious Associated Abdominal Pain: No Severity scale (1-10): 0 Consistency: constant Improves with: none Worsens with: none Associated Symptoms: denies other symptoms - Related Data Home Medications Medication Instructions Recorded Confirmed Ferrous Sulfate [Feosol] 325 mg PO DAILY 10/12/19 10/14/19 HYDROcodone/APAP 7.5-325MG [[place] 1 tab PO Q4-6H PRN 10/12/19 10/14/19 7.5-325] diphenhydrAMINE [Benadryl] 25 mg PO HS PRN 10/12/19 10/14/19 Previous Rx's Medication Instructions Recorded Ondansetron [Zofran ODT] 4 mg PO Q8HR PRN #15 tab 10/09/19 HYDROcodone/APAP 7.5-325MG [[place] 1 tab PO Q4H PRN #40 tab 10/14/19 7.5-325] Promethazine [Phenergan] 25 mg PO Q6HR PRN #12 tablet 10/18/19 Allergies Allergy/AdvReac Type Severity Reaction Status Date / Time No Known Allergies Allergy Verified 10/18/19 05:39 Review of Systems ROS Statement: Those systems with pertinent positive or pertinent negative responses have been documented in the HPI. ROS Other: All systems not noted in ROS Statement are negative. Constitutional: Denies: fever, chills, weakness Respiratory: Denies: cough, dyspnea Cardiovascular: Denies: chest pain, palpitations, edema Gastrointestinal: Reports: nausea, vomiting. Denies: diarrhea, constipation, hematemesis, melena, hematochezia Genitourinary: Denies: dysuria, hematuria Musculoskeletal: Denies: back pain Skin: Denies: rash Neurological: Denies: headache, weakness Past Medical History Past Medical History: Hearing Disorder / Deafness, Musculoskeletal Disorder Additional Past Medical History / Comment(s): deaf (reads lips), anemia, had episode of palpitations years ago @[facility]-no current problems, fell & fx. left wrist @home on Sat.-wearing splint History of Any Multi-Drug Resistant Organisms: None Reported Past Surgical History: Section, Tonsillectomy Additional Past Surgical History / Comment(s): C/S x2, left arm surgery Past Anesthesia/Blood Transfusion Reactions: No Reported Reaction, Family History of Problems w/ Anesthesia Additional Past Anesthesia/Blood Transfusion Reaction / Comment(s): mom to slow to wake up Past Psychological History: No Psychological Hx Reported Smoking Status: Current some day smoker Past Alcohol Use History: None Reported Past Drug Use History: Marijuana General Exam Limitations: no limitations General appearance: alert, in no apparent distress Head exam: Present: atraumatic, normocephalic Eye exam: Present: normal appearance. Absent: scleral icterus, conjunctival injection ENT exam: Present: normal oropharynx Neck exam: Present: normal inspection Respiratory exam: Present: normal lung sounds bilaterally. Absent: respiratory distress, wheezes, rales, rhonchi, stridor Cardiovascular Exam: Present: regular rate, normal rhythm, normal heart sounds. Absent: systolic murmur, diastolic murmur, rubs, gallop GI/Abdominal exam: Present: soft, hypoactive bowel sounds. Absent: distended, tenderness, guarding, rebound, rigid, mass, pulsatile mass, hernia Extremities exam: Present: other (Left forearm cast. Fingers appear normal and left-sided) Back exam: Present: normal inspection. Absent: CVA tenderness (R), CVA tenderness (L) Neurological exam: Present: alert, normal gait Skin exam: Present: warm, dry, intact, normal color. Absent: rash Course Vital Signs 10/18/19 05:33 Temperature 97.6 F Pulse Rate 100 Respiratory 18 Rate Blood Pressure 149/78 O2 Sat by Pulse 98 Oximetry Medical Decision Making - Lab Data Result diagrams: 10/18/19 06:04 10/18/19 06:04 Lab Results 10/18/19 10/18/19 Range/Units 06:04 06:04 WBC 11.6 H (3.8-10.6) k/uL RBC 5.44 H (3.80-5.40) m/uL Hgb 16.1 H (11.4-16.0) gm/dL Hct 48.4 H (34.0-46.0) % MCV 89.0 (80.0-100.0) fL MCH 29.7 (25.0-35.0) pg MCHC 33.3 (31.0-37.0) g/dL RDW 12.3 (11.5-15.5) % Plt Count 469 H (150-450) k/uL Neutrophils % 82 % Lymphocytes % 12 % Monocytes % 4 % Eosinophils % 1 % Basophils % 1 % Neutrophils # 9.5 H (1.3-7.7) k/uL Lymphocytes # 1.4 (1.0-4.8) k/uL Monocytes # 0.4 (0-1.0) k/uL Eosinophils # 0.1 (0-0.7) k/uL Basophils # 0.1 (0-0.2) k/uL Sodium 136 L (137-145) mmol/L Potassium 4.2 (3.5-5.1) mmol/L Chloride 98 (98-107) mmol/L Carbon Dioxide 26 (22-30) mmol/L Anion Gap 12 mmol/L BUN 5 L (7-17) mg/dL Creatinine 0.51 L (0.52-1.04) mg/dL Est GFR (CKD-EPI)AfAm >90 (>60 ml/min/1.73 sqM) Est GFR (CKD-EPI)NonAf >90 (>60 ml/min/1.73 sqM) Glucose 150 H (74-99) mg/dL Calcium 10.1 (8.4-10.2) mg/dL Total Bilirubin 0.7 (0.2-1.3) mg/dL AST 33 (14-36) U/L ALT 24 (4-34) U/L Alkaline Phosphatase 93 (38-126) U/L Total Protein 8.0 (6.3-8.2) g/dL Albumin 4.6 (3.5-5.0) g/dL Amylase 44 (30-110) U/L Lipase 36 (23-300) U/L Disposition Clinical Impression: Vomiting Disposition: HOME SELF-CARE Condition: Good Instructions (If sedation given, give patient instructions): Acute Nausea and Vomiting (ED) Prescriptions: Promethazine [Phenergan] 25 mg PO Q6HR PRN #12 tablet PRN Reason: Vomiting Is patient prescribed a controlled substance at d/c from ED?: No Referrals: Nik Pratt DO [Primary Care Provider] - 1-2 days
[2019-10-18 06:18] LABS: Basophils # (A) 0.1 k/uL (0-0.2); Basophils % (A) 1 %; Eosinophils # (A) 0.1 k/uL (0-0.7); Eosinophils % (A) 1 %; HCT 48.4 % (34.0-46.0); HGB 16.1 gm/dL (11.4-16.0); Lymphocytes # (A) 1.4 k/uL (1.0-4.8); Lymphocytes % (A) 12 %; MCH 29.7 pg (25.0-35.0); MCHC 33.3 g/dL (31.0-37.0); Mean Platelet Volume 7.6; Monocytes # (A) 0.4 k/uL (0-1.0); Monocytes % (A) 4 %; Neutrophils # (A) 9.5 k/uL (1.3-7.7); Neutrophils % (A) 82 %; Platelet Count 469 k/uL (150-450); RBC 5.44 m/uL (3.80-5.40); RDW 12.3 % (11.5-15.5); WBC 11.6 k/uL (3.8-10.6)
[2019-10-18 06:33] LABS: ALT 24 U/L (4-34); AST 33 U/L (14-36); African American GFR (CKD) >90 (>60 ml/min/1.73 sqM); Albumin 4.6 g/dL (3.5-5.0); Alkaline Phosphatase 93 U/L (38-126); Amylase 44 U/L (30-110); Anion Gap 12 mmol/L; Blood Urea Nitrogen 5 mg/dL (7-17); Calcium 10.1 mg/dL (8.4-10.2); Carbon Dioxide 26 mmol/L (22-30); Chloride 98 mmol/L (98-107); Glucose 150 mg/dL (74-99); Non-African American GFR(CKD) >90 (>60 ml/min/1.73 sqM); Potassium 4.2 mmol/L (3.5-5.1); Sodium 136 mmol/L (137-145); Total Bilirubin 0.7 mg/dL (0.2-1.3)
[2019-10-18 08:02] VITALS: BP 139/85; PULSE 95; RESP 20
== END 2019-10-18 08:05 | disposition home or self-care (01) ==
LOC: EC 05:18
DX: R11.2 Nausea with vomiting, unspecified (principal); R19.7 Diarrhea, unspecified; F17.200 Nicotine dependence, unspecified, uncomplicated
CPT/HCPCS: 99284; 96365; 96361; 36415; 80053; 82150; 83690; 85025; J2550

== ENCOUNTER 2020-02-27 14:05 | Observation (INO) | payer MEDICARE ==
[2020-02-27 14:14] LABS: Glucose,Whole Blood 137 mg/dL (75-99)
[2020-02-27] MEDS ORDERED: diphenhydrAMINE 50 MG/ML 1 ML VIAL IVP STA (14:25)
[2020-02-27] MEDS ORDERED: SODIUM CHLORIDE 0.9% 1,000 ML IV ONE (14:25)
[2020-02-27] MEDS ORDERED: LORazepam 2 MG/ML INJ IV STA (14:25)
[2020-02-27] MEDS: SODIUM CHLORIDE 0.9% 1,000 ML IV SCH ×2 (14:37→23:10)
[2020-02-27 14:40] LABS: Basophils % (A) 0 %; Eosinophils # (A) 0.1 k/uL (0-0.7); Eosinophils % (A) 1 %; HCT 43.7 % (34.0-46.0); HGB 14.3 gm/dL (11.4-16.0); Hypochromasia Slight; Lymphocytes # (A) 1.4 k/uL (1.0-4.8); Lymphocytes % (A) 10 %; MCH 27.3 pg (25.0-35.0); MCHC 32.7 g/dL (31.0-37.0); MCV 83.4 fL (80.0-100.0); Mean Platelet Volume 7.2; Monocytes # (A) 0.5 k/uL (0-1.0); Monocytes % (A) 4 %; Neutrophils # (A) 12.6 k/uL (1.3-7.7); Neutrophils % (A) 85 %; Platelet Count 430 k/uL (150-450); RBC 5.24 m/uL (3.80-5.40); RDW 13.3 % (11.5-15.5); WBC 14.9 k/uL (3.8-10.6)
--- NOTE | 2020-02-27 14:42 | ED ---
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 Patient states that she began vomiting at 1:30PM and could not stop she states she has not ate all day. Patient denies diarrhea, admits to b/l lower abdominal aching sensation no severe pain. Denies fever, URI symtoms. Denies dysuria, urgency, frequency, chest pain, SOB. Patient has no additional complaints Upon arrival patient vomiting. Took zofran ODT and phenergan prior to arrival. - Related Data Home Medications Medication Instructions Recorded Confirmed Ferrous Sulfate [Feosol] 325 mg PO DAILY 10/12/19 10/14/19 HYDROcodone/APAP 7.5-325MG [[place] 1 tab PO Q4-6H PRN 10/12/19 10/14/19 7.5-325] diphenhydrAMINE [Benadryl] 25 mg PO HS PRN 10/12/19 10/14/19 Previous Rx's Medication Instructions Recorded Ondansetron [Zofran ODT] 4 mg PO Q8HR PRN #15 tab 10/09/19 HYDROcodone/APAP 7.5-325MG [[place] 1 tab PO Q4H PRN #40 tab 10/14/19 7.5-325] Promethazine [Phenergan] 25 mg PO Q6HR PRN #12 tablet 10/18/19 Allergies Allergy/AdvReac Type Severity Reaction Status Date / Time No Known Allergies Allergy Verified 02/27/20 14:08 Review of Systems ROS Statement: Those systems with pertinent positive or pertinent negative responses have been documented in the HPI. ROS Other: All systems not noted in ROS Statement are negative. Past Medical History Past Medical History: Hearing Disorder / Deafness, Musculoskeletal Disorder Additional Past Medical History / Comment(s): deaf (reads lips), anemia, had episode of palpitations years ago @[facility]-no current problems, fell & fx. left wrist @home on Sat.-wearing splint History of Any Multi-Drug Resistant Organisms: None Reported Past Surgical History: Section, Tonsillectomy Additional Past Surgical History / Comment(s): C/S x2, left arm surgery Past Anesthesia/Blood Transfusion Reactions: No Reported Reaction, Family History of Problems w/ Anesthesia Additional Past Anesthesia/Blood Transfusion Reaction / Comment(s): mom to slow to wake up Past Psychological History: No Psychological Hx Reported Smoking Status: Current some day smoker Past Alcohol Use History: None Reported Past Drug Use History: Marijuana General Exam - General Exam Comments Initial Comments: General: The patient is awake and alert, in no distress Eye: Pupils are equal, round and reactive to light, extra-ocular movements are intact. No nystagmus. There is normal conjunctiva bilaterally. No signs of icterus. Cardiovascular: There is a regular rate and rhythm. No murmur, rub or gallop is appreciated. Respiratory: Lungs are clear to auscultation, respirations are non-labored, breath sounds are equal. No wheezes, stridor, rales, or rhonchi. Gastrointestinal: Soft, non-distended, mild tenderness to palpation of the lower abdomen with deep palpation, remaining abdomen including RUQ nontender and is without masses or organomegaly noted. There is no rebound or guarding present. Musculoskeletal: Normal ROM, no tenderness. Strength 5/5. Sensation intact. Pulses equal bilaterally 2+. Neurological: A&O x 3. CN II-XII intact grossly, There are no obvious motor or sensory deficits. Coordination appears grossly intact. Speech is normal. Skin: Skin is warm and dry and no rashes or lesions are noted. Psychiatric: Cooperative, appropriate mood & affect, normal judgment. Limitations: language barrier Course Vital Signs 02/27/20 02/27/20 14:08 15:45 Temperature 97.7 F Pulse Rate 97 85 Respiratory 18 18 Rate Blood Pressure 165/109 156/94 O2 Sat by Pulse 99 96 Oximetry Medical Decision Making - Medical Decision Making She has mild leukocytosis. She took 2 antiemetics prior to arrival patient continues to vomit patient was given Ativan and Benadryl. She continued to vomit and thus was given Zofran. Patient has mild abdominal pain. CT showed mild-moderate diverticulitis. Patient will be admitted given intractable vomiting and will be unable to tolerate oral treatment outpatient otherwise diverticulitis appears noncomplicated. Zosyn IV initiated in the ER. Patient admitted to [facility] Dr. Anthony agreeable to care plan. - Lab Data Result diagrams: 02/27/20 14:26 02/27/20 14:26 Lab Results 02/27/20 02/27/20 02/27/20 Range/Units 14:12 14:26 14:26 WBC 14.9 H (3.8-10.6) k/uL RBC 5.24 (3.80-5.40) m/uL Hgb 14.3 (11.4-16.0) gm/dL Hct 43.7 (34.0-46.0) % MCV 83.4 (80.0-100.0) fL MCH 27.3 (25.0-35.0) pg MCHC 32.7 (31.0-37.0) g/dL RDW 13.3 (11.5-15.5) % Plt Count 430 (150-450) k/uL Neutrophils % 85 % Lymphocytes % 10 % Monocytes % 4 % Eosinophils % 1 % Basophils % 0 % Neutrophils # 12.6 H (1.3-7.7) k/uL Lymphocytes # 1.4 (1.0-4.8) k/uL Monocytes # 0.5 (0-1.0) k/uL Eosinophils # 0.1 (0-0.7) k/uL Basophils # 0.0 (0-0.2) k/uL Hypochromasia Slight Sodium 137 (137-145) mmol/L Potassium 4.2 (3.5-5.1) mmol/L Chloride 107 (98-107) mmol/L Carbon Dioxide 21 L (22-30) mmol/L Anion Gap 9 mmol/L BUN 7 (7-17) mg/dL Creatinine 0.49 L (0.52-1.04) mg/dL Est GFR (CKD-EPI)AfAm >90 (>60 ml/min/1.73 sqM) Est GFR (CKD-EPI)NonAf >90 (>60 ml/min/1.73 sqM) Glucose 142 H (74-99) mg/dL POC Glucose (mg/dL) 137 H (75-99) mg/dL POC Glu Traffic Signal Supervisor Maintenance ID Amanda Smith Calcium 9.6 (8.4-10.2) mg/dL Total Bilirubin 0.6 (0.2-1.3) mg/dL AST 18 (14-36) U/L ALT 9 (4-34) U/L Alkaline Phosphatase 98 (38-126) U/L Total Protein 7.6 (6.3-8.2) g/dL Albumin 4.3 (3.5-5.0) g/dL Amylase 31 (30-110) U/L Lipase 50 (23-300) U/L Disposition Clinical Impression: Diverticulitis, Intractable vomiting Disposition: ADMITTED IP TO [facility] Condition: Stable Is patient prescribed a controlled substance at d/c from ED?: No Referrals: Nik Pratt DO [Primary Care Provider] - 1-2 days Time of Disposition: 16:03 Decision to Admit Reason: Admit from EC Decision Date: 02/27/20 Decision Time: 16:03
[2020-02-27 14:48] LABS: ALT 9 U/L (4-34); AST 18 U/L (14-36); African American GFR (CKD) >90 (>60 ml/min/1.73 sqM); Albumin 4.3 g/dL (3.5-5.0); Alkaline Phosphatase 98 U/L (38-126); Amylase 31 U/L (30-110); Anion Gap 9 mmol/L; Blood Urea Nitrogen 7 mg/dL (7-17); Calcium 9.6 mg/dL (8.4-10.2); Carbon Dioxide 21 mmol/L (22-30); Chloride 107 mmol/L (98-107); Glucose 142 mg/dL (74-99); Non-African American GFR(CKD) >90 (>60 ml/min/1.73 sqM); Potassium 4.2 mmol/L (3.5-5.1); Sodium 137 mmol/L (137-145); Total Bilirubin 0.6 mg/dL (0.2-1.3); Total Protein 7.6 g/dL (6.3-8.2)
[2020-02-27] MEDS ORDERED: ONDANSETRON 4 MG/2 ML VIAL IVP STA (15:37)
--- NOTE | 2020-02-27 15:53 | CT ---
EXAMINATION TYPE: CT abdomen pelvis w con DATE OF EXAM: 02/27/2020 HISTORY: Lower abdominal pain and vomiting. CT DLP: 1274.5mGycm Automated Exposure Control for Dose Reduction was Utilized. CONTRAST: CT scan of the abdomen and pelvis is performed without oral but with IV Contrast, patient injected wi th 100 mL of Isovue 300. COMPARISON: None. FINDINGS: Suboptimal study as patient unable to hold breath. There is significant motion artifact acr oss the upper to mid abdominal structures. LUNG BASES: No significant abnormality is appreciated. LIVER/GB: Visualized liver is heterogeneously hypodense suggesting diffuse fatty infiltration. Mild h epatomegaly is present. PANCREAS: No significant abnormality is seen. SPLEEN: No significant abnormality is seen. ADRENALS: Bilateral adrenal masses. Smaller 1.8 x 1.7 cm left adrenal mass show significant washout. Larger heterogeneous 3.1 x 2.3 cm right adrenal mass shows less enhancement or hyperdensity and initi al images. KIDNEYS: Symmetric cortical medullary uptake and excretion without hydronephrosis seen bilaterally. F ocal cortical defect or scar mid to lower pole of the right kidney laterally. BOWEL: Small to moderate size hiatal hernia. Suboptimal evaluation of bowel without enteric contrast. No suspicious small or large bowel dilatation. Moderate wall thickening in the transverse colon coul d be on the basis of of poor distention. Diverticular change in the proximal to mid sigmoid colon wit h mild to moderate ill-defined fluid and fat stranding in the left pelvis axial image 66. No well-for med fluid collection or drainable abscess. No pneumoperitoneum. UTERUS/ADNEXA: Retroverted uterus. Both ovaries normal in size. LYMPH NODES: No greater than 1cm abdominal or pelvic lymph nodes are appreciated. OSSEOUS STRUCTURES: Slight scoliotic curvature. Mild height loss T11 vertebra. OTHER: No significant additional abnormality is seen. IMPRESSION 1. CT findings consistent with a mild to moderate uncomplicated acute diverticulitis left pelvis prox imal to mid sigmoid colon level. 2. Nonspecific bilateral adrenal masses, nonemergent follow-up adrenal protocol CT or MRI advised to further evaluate and characterize if old outside CT and MRI is not available as malignant etiology ca nnot be excluded on this study.
[2020-02-27] MEDS ORDERED: PIPERACILLIN-TAZOBACTAM 3.375 GM in SODIUM CHLORIDE 0.9% 100 ML IVPB STA (15:58)
[2020-02-27] MEDS ORDERED: NALOXONE 0.4 MG/ML 1 ML VIAL IV PRN (15:59)
[2020-02-27 17:17] LABS: Color,Urine Yellow
[2020-02-27 17:18] LABS: Appearance,Urine Clear (Clear); Bilirubin,Urine Negative (Negative); Blood,Urine Negative (Negative); Glucose,Urine (UA) 1+ (Negative); Ketones,Urine 2+ (Negative); Leukocyte Esterase,Urine Negative (Negative); Nitrite,Urine Negative (Negative); Protein,Urine Negative (Negative); Urobilinogen,Urine <2.0 mg/dL (<2.0)
[2020-02-27] MEDS ORDERED: ONDANSETRON 4 MG/2 ML VIAL IVP PRN (19:55)
[2020-02-27] MEDS: PANTOPRAZOLE 40 MG/10 ML VIAL IVP SCH (20:08)
[2020-02-27] MEDS ORDERED: HYDROmorphone 0.5 MG/0.5 ML SYRINGE IVP PRN (20:55)
[2020-02-27] MEDS: HEPARIN SODIUM,PORCINE 5,000 UNIT/ML 1 ML VIAL SQ SCH (21:41)
[2020-02-27 21:48] LABS: Appearance,Urine Clear (Clear); Color,Urine Yellow; Glucose,Urine (UA) Negative (Negative); Ketones,Urine 1+ (Negative); Protein,Urine Negative (Negative); Specific Gravity,Urine 1.005 (1.001-1.035)
[2020-02-27 21:49] LABS: Bilirubin,Urine Negative (Negative); Blood,Urine Negative (Negative); Leukocyte Esterase,Urine Negative (Negative); Nitrite,Urine Negative (Negative); Urobilinogen,Urine <2.0 mg/dL (<2.0)
[2020-02-27 21:59] LABS: Amphetamine Screen,Urine Not Detected (NotDetected); Barbiturate Screen,Urine Not Detected (NotDetected); Benzodiazepines Screen,Urine Detected (NotDetected); Cocaine Screen,Urine Not Detected (NotDetected); Methadone Screen, Urine Not Detected (NotDetected); Opiate Screen,Urine Not Detected (NotDetected); Oxycodone Screen, Urine Not Detected (NotDetected); Phencyclidine Screen,Urine Not Detected (NotDetected); Tricyclic Antidepressant,Urine Not Detected (NotDetected); Urn Cannabinoid Scrn Detected (NotDetected)
--- NOTE | 2020-02-27 22:04 | XR ---
EXAMINATION TYPE: XR chest 1V portable DATE OF EXAM: 02/27/2020 COMPARISON: NONE HISTORY: Abdominal pain TECHNIQUE: FINDINGS: Heart and mediastinum are normal. Lungs are clear. Diaphragm is normal. Bony thorax appears normal. IMPRESSION: Normal chest.
[2020-02-27] MEDS: PIPERACILLIN-TAZOBACTAM 3.375 GM in SODIUM CHLORIDE 0.9% 100 ML IVPB SCH (23:09)
--- NOTE | 2020-02-27 23:42 | HP ---
HISTORY AND PHYSICAL CHIEF COMPLAINT: Abdominal pain, vomiting. HISTORY OF PRESENT ILLNESS: This 44-year-old woman with a past medical history of multiple medical problems including history of hearing defects, history of palpitations, section, tonsillectomy being followed by Dr. Nik Pratt in the outpatient setting complaining of abdominal pain. The patient also had incessant vomiting, which she was unable to keep anything down for the last 24 hours. The patient came to [facility] and admitted for further evaluation and treatment. An abdomen and pelvis CAT scan was done at the time of admission, which showed essentially CT findings consistent [id number] uncomplicated acute diverticulitis in the left pelvis proximal to sigmoid colon and nonspecific bilateral adrenal masses was also noted. There is no history of fever or rigors. No history of headache, loss of consciousness, seizures at this time. PAST MEDICAL HISTORY: History of hearing defect, history of deafness, history of musculoskeletal disorder. MEDICATIONS: Medications prior to admission, home medications are: 1. Vitamin D3, 1000 units daily. 2. Benadryl 25 mg at bedtime. 3. Calcium 600 mg at bedtime. 4. Augmentin 1 p.o. b.i.d. ALLERGIES: None. FAMILY HISTORY: Unable to obtain. SOCIAL HISTORY: History of smoking, history of THC. REVIEW OF SYSTEMS: ENT: No diminished hearing or diminished vision. CARDIOVASCULAR SYSTEM: No angina. RESPIRATORY SYSTEM: No cough or hemoptysis. GI: As mentioned earlier. : No dysuria. NERVOUS SYSTEM: No numbness or weakness. ALLERGY/IMMUNOLOGY: No asthma, hay fever. MUSCULOSKELETAL: As mentioned earlier. HEMATOLOGY/ONCOLOGY: No history of anemia. ENDOCRINE: No history of diabetes or hypothyroidism. CONSTITUTIONAL: As mentioned earlier. DERMATOLOGY: Negative. RHEUMATOLOGY: Negative. PSYCHIATRY: As mentioned earlier. PHYSICAL EXAMINATION: The patient is alert and oriented x3. Pulse 94, blood pressure 165/96, respirations 18, temperature 97.8, pulse ox 98% on room air. HEENT: Conjunctivae normal. Oral mucosa moist. NECK: No jugular venous distention. No carotid bruit. No lymph node enlargement. CARDIOVASCULAR: S1, S2 muffled. RESPIRATORY: Breath sounds diminished at the bases. No rhonchi, no crackles. ABDOMEN: Soft, mild diffuse distention. Mild diffuse tenderness present. No guarding. No rigidity. No mass palpable. No ascites. Bowel sounds present. LEGS: No edema, no swelling. NERVOUS SYSTEM: After mentioned earlier. Moves all 4 limbs. No focal motor or sensory deficits. LYMPHATICS: No lymphadenopathy of the neck, axillae or groin. SKIN: No ulcer, rash or bleeding. JOINTS: No active deforming arthropathy. LABS: WBC 14.9, hemoglobin 14.3, sodium 137, potassium 4.2. UA noted. ASSESSMENT: 1. Abdominal pain, vomiting, possible acute diverticulitis. 2. Nonspecific bilateral adrenal mass on the CT scan for outpatient followup. 3. Increased WBC. 4. History of hearing defects and deafness. 5. History of anemia. 6. History of palpitations. 7. History of fractured left wrist. 8. History of tonsillectomy. 9. History of continued nicotine dependence. 10.History of THC. 11.FULL CODE. RECOMMENDATIONS AND DISCUSSION: This 44-year-old woman who presented with multiple medical issues, we will monitor the patient closely. Continue the current medications. Continue symptomatic treatment. Will initiate broad-spectrum IV antibiotics and also obtain a gastroenterology consultation. Otherwise, symptomatic treatment provided. Resume the home medications. DVT prophylaxis. Prognosis guarded because of multiple complex medical issues. Further recommendations to follow. A copy of dictation forwarded to Dr. Pratt who is the primary physician. MMODL / IJN: [id number] /
[2020-02-28] MEDS: SODIUM CHLORIDE 0.9% 1,000 ML IV SCH ×2 (05:58→14:21)
[2020-02-28 06:07] LABS: Basophils % (A) 0 %; Eosinophils # (A) 0.1 k/uL (0-0.7); Eosinophils % (A) 1 %; HCT 39.3 % (34.0-46.0); HGB 12.9 gm/dL (11.4-16.0); Hypochromasia Slight; Lymphocytes # (A) 2.6 k/uL (1.0-4.8); Lymphocytes % (A) 20 %; MCH 27.6 pg (25.0-35.0); MCHC 32.8 g/dL (31.0-37.0); MCV 84.1 fL (80.0-100.0); Mean Platelet Volume 6.9; Monocytes % (A) 8 %; Neutrophils # (A) 8.7 k/uL (1.3-7.7); Neutrophils % (A) 69 %; Platelet Count 380 k/uL (150-450); RBC 4.67 m/uL (3.80-5.40); RDW 13.5 % (11.5-15.5); WBC 12.6 k/uL (3.8-10.6)
[2020-02-28 06:20] LABS: African American GFR (CKD) >90 (>60 ml/min/1.73 sqM); Anion Gap 6 mmol/L; Blood Urea Nitrogen 5 mg/dL (7-17); Calcium 8.8 mg/dL (8.4-10.2); Carbon Dioxide 23 mmol/L (22-30); Chloride 106 mmol/L (98-107); Glucose 100 mg/dL (74-99); Non-African American GFR(CKD) >90 (>60 ml/min/1.73 sqM); Potassium 3.6 mmol/L (3.5-5.1); Sodium 135 mmol/L (137-145)
[2020-02-28 08:34] VITALS: BP 125/67; PULSE 84; RESP 14; TEMP 98.4
[2020-02-28] MEDS: PANTOPRAZOLE 40 MG/10 ML VIAL IVP SCH (08:58)
[2020-02-28] MEDS: HEPARIN SODIUM,PORCINE 5,000 UNIT/ML 1 ML VIAL SQ SCH (08:58)
[2020-02-28] MEDS: PIPERACILLIN-TAZOBACTAM 3.375 GM in SODIUM CHLORIDE 0.9% 100 ML IVPB SCH (08:58)
--- NOTE | 2020-02-29 03:34 | CONS ---
CONSULTATION DATE OF DICTATION: 02/28/2020 REASON FOR CONSULTATION: Abdominal pain, nausea, vomiting. HISTORY OF PRESENT ILLNESS: The patient is a 44-year-old pleasant white female with history of hearing loss, came into the emergency room for evaluation of nausea, vomiting for the last 2 days duration. Patient has these symptoms intermittently since October of this year. She had 3 episodes and each episode she came to the emergency room, was treated symptomatically and was discharged home. The episodes usually last between one to two days and resolve. This episode started yesterday and she had several episodes of nausea, vomiting. She had some vague upper abdominal discomfort. In the emergency room, she had a CT of the abdomen and pelvis done that showed changes consistent with mild to moderate uncomplicated acute diverticulitis in the proximal sigmoid colon. Hence we are consulted in regards to this issue. The patient was started on broad- spectrum IV antibiotics. She is feeling much better. The nausea, vomiting has resolved. She received some Zofran in the ER and is feeling much better. Requesting to be discharged home today. She denies any fever, chills, night sweats. No prior history of EGD or colonoscopy in the past. No prior history of peptic ulcer disease. She denies any recent NSAID use. PAST MEDICAL HISTORY: Significant for hearing deficit. MEDICATIONS: Medications at home include vitamin D3, calcium, Benadryl. ALLERGIES: None. SOCIAL HISTORY: No smoking. No alcohol use. FAMILY HISTORY: Unremarkable. REVIEW OF SYSTEMS: CARDIOPULMONARY: She denies any chest pain or shortness of breath. GENITOURINARY: No dysuria or hematuria. MUSCULOSKELETAL: Unremarkable. SKIN: Unremarkable. ENDOCRINE: Unremarkable. PSYCHIATRIC: Unremarkable. NEUROLOGY: Unremarkable. ENT/VISION: Unremarkable. History of hearing loss. GI: As mentioned above. CONSTITUTIONAL: No recent weight loss. No fever, chills, night sweats. PHYSICAL EXAMINATION: She appears comfortable. No apparent distress. Vital signs are stable. Blood pressure is 112/82, pulse rate 66 per minute and afebrile. HEENT: Examination unremarkable. Conjunctivae pink. Sclerae anicteric. Oral cavity, no lesions. NECK: No JVD or lymph node enlargement. CHEST: Clear to auscultation. HEART: Regular rate and rhythm. ABDOMEN: Soft. Bowel sounds are positive. No organomegaly. There was minimal tenderness in the left lower quadrant area. EXTREMITIES: No pedal edema. SKIN: No rashes. NEUROLOGIC: Alert and oriented x3. No focal deficits. LABS: Labs from yesterday: WBC 14.9, hemoglobin 14.3, platelets normal. Basic metabolic panel is within normal limits. Today, WBC is 12.6. Rest of the labs are within normal limits. IMPRESSION: This is a lady who presented to the hospital with vague abdominal pain associated with nausea, vomiting that started yesterday morning. CT of the abdomen showed evidence of uncomplicated sigmoid diverticulitis presently on Zosyn and she is doing well. Nausea, vomiting have resolved. She is requesting to be discharged home. RECOMMENDATIONS: 1. Advance diet as tolerated. 2. Continue with antiemetics as needed. 3. She can be discharged home with outpatient antibiotics for diverticulitis. 4. She was advised to follow up in the office in 2 weeks from and based on her clinical response, we will plan an EGD and colonoscopy on outpatient basis. Thank you for this consultation. MMBINHL / BHUPINDERN: [id number] /
--- NOTE | 2020-02-29 09:04 | P.DS ---
Providers Date of admission: 02/27/20 16:00 Expected date of discharge: 02/28/20 Attending physician: Srikanth Penn Consults: 02/27/20 20:53 Consult Physician Routine Consulting Provider: Leslie Sher Consult Reason/Comments: diverticulitis, vomiting Do you want consulting provider notified?: Yes Primary care physician: Nik [facility] Course: Final diagnosis Abdominal pain, vomiting, possible acute diverticulitis nonspecific bilateral adrenal mass on the computed tomography scan for outpatient follow-up Increased WBC History of hearing defects and deafness History of anemia History of palpitations history of fractured left wrist History of tonsillectomy History of continued nicotine dependence History of THC Full code Discharge disposition Patient is being discharged in a stable condition with guarded prognosis to home. Patient will follow-up with Dr. Shabnam Pratt as well as Dr. Christos CHANDLER in the outpatient setting. Patient will continue on a short course of oral antibiotics in the form of Augmentin twice daily for the next 10 days along with Protonix daily until GI follow-up. Total time taken is 35 minutes. History of present illness This is a 44-year-old female who was recently admitted with abdominal pain along with incessant vomiting and was being closely monitored. Patient had a CAT scan of the abdomen done and the findings were consistent with mild to moderate uncomplicated acute diverticulitis in the left pelvis proximal to the sigmoid colon and nonspecific bilateral adrenal masses were also noted. Patient was seen and evaluated by GI recommending continued antibiotics in the form of Augmentin for the next 10 days along with Protonix until follow-up. She will follow-up in the clinic with GI in 2 weeks to discuss upper and lower endoscopy. Patient is very eager to go home and states her vomiting has subsided and she is feeling better able to tolerate diet. Patient instructed to continue with a low fiber diet and advance slowly. Currently no reports of chest pain, worsening shortness of breath, or palpitations. Patient is afebrile. No reports of nausea or vomiting and patient is tolerating diet. Patient will be discharged to home today. On exam vital signs are stable. Temp is 98.4F, pulse is 84, respirations are 14, blood pressure is 125/67, oxygen saturation is 95% on room air. Cardio S1, S2 are muffled. Respiratory system shows diminished breath sounds at the bases with no wheezing or rhonchi noted. Abdomen is soft and nontender. Nervous system shows no focal deficits. Please refer to medication reconciliation sheet for a list of medications. Patient Condition at Discharge: Stable Plan - Discharge Summary Discharge Rx Participant: No New Discharge Prescriptions: New Amoxic-Pot Clav 875-125Mg [Augmentin 875-125] 1 tab PO Q12HR 10 Days #20 tab Pantoprazole Sodium [Protonix] 40 mg PO DAILY #30 tablet. Continue diphenhydrAMINE [Benadryl] 25 mg PO HS PRN PRN Reason: sleep Cholecalciferol [Vitamin D3 (25 Mcg = 1000 Iu)] 1,000 unit PO DAILY Calcium Carbonate [Calcium] 600 mg PO HS Discharge Medication List diphenhydrAMINE [Benadryl] 25 mg PO HS PRN 10/12/19 [History] Amoxic-Pot Clav 875-125Mg [Augmentin 875-125] 1 tab PO Q12HR 10 Days #20 tab 02/27/20 [Rx] Calcium Carbonate [Calcium] 600 mg PO HS 02/27/20 [History] Cholecalciferol [Vitamin D3 (25 Mcg = 1000 Iu)] 1,000 unit PO DAILY 02/27/20 [History] Pantoprazole Sodium [Protonix] 40 mg PO DAILY #30 tablet. 02/28/20 [Rx] Follow up Appointment(s)/Referral(s): Leslie Sher MD [STAFF PHYSICIAN] - 1 Week (will need EGD/Colonoscopy in 2 w eeks) Nik Pratt DO [Primary Care Provider] - 1-2 days Patient Instructions/Handouts: Diverticulitis (GEN) Activity/Diet/Wound Care/Special Instructions: Activity Limited until follow-up Continue clear liquid diet and advance slowly as tolerated Continue antibiotics until finished Continue with Protonix Follow-up with primary care provider upon discharge Follow-up with GI in 1-2 weeks Discharge Disposition: HOME SELF-CARE
== END 2020-02-28 17:00 | disposition home or self-care (01) ==
LOC: EC 14:05 → 4SSUR 16:00 → INTOOBSV 16:00 → 4SSUR 02-28 16:55 → UNDODISIN 02-28 17:00
PROVIDERS: ADMIT Hospitalist; ATTEND Hospitalist
DX: K57.32 Diverticulitis of large intestine without perforation or abscess without bleeding (principal); E27.8 Other specified disorders of adrenal gland; H91.93 Unspecified hearing loss, bilateral; D64.9 Anemia, unspecified; F17.200 Nicotine dependence, unspecified, uncomplicated; S62.102D Fracture of unspecified carpal bone, left wrist, subsequent encounter for fracture with routine healing; Z03.818 Encounter for observation for suspected exposure to other biological agents ruled out; Z79.899 Other long term (current) drug therapy; Z86.79 Personal history of other diseases of the circulatory system; Z98.890 Other specified postprocedural states; Z90.89 Acquired absence of other organs; Z84.89 Family history of other specified conditions; W19.XXXD Unspecified fall, subsequent encounter
CPT/HCPCS: 96376 ×2; 96361 ×2; 96365; 96366 ×2; 96372; 96375; 99285; 36415; 80053; 80048; 82150; 83690; 85025 ×2; 81003; 80306; 71045; 74177; G0378 ×2; U0003; J2543 ×2; J2060; J1200; J1644; J2405; C9113 ×2; Q9967

== ENCOUNTER 2020-04-11 14:45 | Emergency (ER) | payer MEDICARE ==
[2020-04-11 14:59] VITALS: TEMP 97.4
[2020-04-11] MEDS ORDERED: ONDANSETRON 4 MG/2 ML VIAL IVP STA (15:16)
[2020-04-11] MEDS ORDERED: SODIUM CHLORIDE 0.9% 1,000 ML IV STA ×2 (15:16→17:00)
--- NOTE | 2020-04-11 15:44 | ED ---
General Adult HPI - General Chief complaint: Nausea/Vomiting/Diarrhea Stated complaint: vomiting Time Seen by Provider: 04/11/20 15:03 Source: patient, RN notes reviewed Mode of arrival: wheelchair Limitations: no limitations - History of Present Illness Initial comments: 44-year-old female with a past medical history of deafness, anemia presents to the emergency department for nausea vomiting. Patient has a history of nausea vomiting. States she has been here several times for this. is translating for patient. Patient was supposed to have EGD and colonoscopy performed tomorrow for diagnoses of this nausea vomiting. She was told to quit smoking marijuana a few days before this procedure which she uses for nausea. Today at 8 AM patient began vomiting and is not able to drink the colonoscopy prep. The last time this symptom occurred patient was diagnosed with diverticulitis and and patient are concerned she may have diverticulitis again.Patient has no other complaints at this time including shortness of breath, chest pain, abdominal pain, headache, or visual changes. - Related Data Home Medications Medication Instructions Recorded Confirmed diphenhydrAMINE [Benadryl] 25 mg PO HS PRN 10/12/19 02/27/20 Calcium Carbonate [Calcium] 600 mg PO HS 02/27/20 02/27/20 Cholecalciferol [Vitamin D3 (25 1,000 unit PO DAILY 02/27/20 02/27/20 Mcg = 1000 Iu)] Previous Rx's Medication Instructions Recorded Amoxic-Pot Clav 875-125Mg 1 tab PO Q12HR 10 Days #20 tab 02/27/20 [Augmentin 875-125] Pantoprazole Sodium [Protonix] 40 mg PO DAILY #30 tablet. 02/28/20 Ondansetron [Zofran ODT] 4 mg PO Q8HR PRN #15 tab 04/11/20 Allergies Allergy/AdvReac Type Severity Reaction Status Date / Time No Known Allergies Allergy Verified 04/11/20 14:59 Review of Systems ROS Statement: Those systems with pertinent positive or pertinent negative responses have been documented in the HPI. ROS Other: All systems not noted in ROS Statement are negative. Past Medical History Past Medical History: Hearing Disorder / Deafness, Musculoskeletal Disorder Additional Past Medical History / Comment(s): deaf (reads lips), anemia, had episode of palpitations years ago @[facility]-no current problems, fell & fx. left wrist @home on Sat.-wearing splint History of Any Multi-Drug Resistant Organisms: None Reported Past Surgical History: Section, Tonsillectomy Additional Past Surgical History / Comment(s): C/S x2, left arm surgery Past Anesthesia/Blood Transfusion Reactions: No Reported Reaction, Family History of Problems w/ Anesthesia Additional Past Anesthesia/Blood Transfusion Reaction / Comment(s): mom to slow to wake up Past Psychological History: No Psychological Hx Reported Smoking Status: Current some day smoker Past Alcohol Use History: None Reported Past Drug Use History: Marijuana - Past Family History Mother Family Medical History: Unable to Obtain General Exam Limitations: no limitations General appearance: alert, in no apparent distress Head exam: Present: atraumatic, normocephalic, normal inspection Eye exam: Present: normal appearance, PERRL, EOMI. Absent: scleral icterus, conjunctival injection, periorbital swelling ENT exam: Present: normal exam, mucous membranes moist Neck exam: Present: normal inspection, full ROM. Absent: tenderness, meningismus, lymphadenopathy Respiratory exam: Present: normal lung sounds bilaterally. Absent: respiratory distress, wheezes, rales, rhonchi, stridor Cardiovascular Exam: Present: regular rate, normal rhythm, normal heart sounds. Absent: systolic murmur, diastolic murmur, rubs, gallop, clicks GI/Abdominal exam: Present: soft, normal bowel sounds. Absent: distended, tenderness, guarding, rebound, rigid Neurological exam: Present: alert Course Vital Signs 04/11/20 14:54 Temperature 97.4 F L Pulse Rate 74 Respiratory 18 Rate Blood Pressure 176/97 O2 Sat by Pulse 100 Oximetry Medical Decision Making - Medical Decision Making Vitals are stable. CBC unremarkable. CMP unremarkable. Urinalysis does show 4+ ketones which are likely secondary to dehydration. Abdomen and pelvis CT did reveal bilateral adrenal masses not significantly different from prior exam as well as old T11 and T12 fractures and colonic lipomatosis. I discussed this with patient and she will follow up with primary care for this. At this point patient is feeling much better after 2 rounds of antiemetics. Patient is requesting discharge home. They have rescheduled her colonoscopy for the . They will follow up with both primary care and GI. They will return for any worsening symptoms. - Lab Data Result diagrams: 04/11/20 16:05 04/11/20 16:05 Lab Results 04/11/20 04/11/20 04/11/20 Range/Units 16:05 16:05 16:05 WBC 9.9 (3.8-10.6) k/uL RBC 5.40 (3.80-5.40) m/uL Hgb 13.4 (11.4-16.0) gm/dL Hct 43.0 (34.0-46.0) % MCV 79.8 L (80.0-100.0) fL MCH 24.9 L (25.0-35.0) pg MCHC 31.2 (31.0-37.0) g/dL RDW 14.4 (11.5-15.5) % Plt Count 335 (150-450) k/uL Neutrophils % 86 % Lymphocytes % 9 % Monocytes % 4 % Eosinophils % 1 % Basophils % 0 % Neutrophils # 8.5 H (1.3-7.7) k/uL Lymphocytes # 0.9 L (1.0-4.8) k/uL Monocytes # 0.4 (0-1.0) k/uL Eosinophils # 0.1 (0-0.7) k/uL Basophils # 0.0 (0-0.2) k/uL Manual Slide Review Performed Hypochromasia Moderate Sodium 136 L (137-145) mmol/L Potassium 4.1 (3.5-5.1) mmol/L Chloride 108 H (98-107) mmol/L Carbon Dioxide 17 L (22-30) mmol/L Anion Gap 11 mmol/L BUN 7 (7-17) mg/dL Creatinine 0.48 L (0.52-1.04) mg/dL Est GFR (CKD-EPI)AfAm >90 (>60 ml/min/1.73 sqM) Est GFR (CKD-EPI)NonAf >90 (>60 ml/min/1.73 sqM) Glucose 167 H (74-99) mg/dL Calcium 9.5 (8.4-10.2) mg/dL Total Bilirubin 0.7 (0.2-1.3) mg/dL AST 20 (14-36) U/L ALT 10 (4-34) U/L Alkaline Phosphatase 89 (38-126) U/L Total Protein 7.3 (6.3-8.2) g/dL Albumin 4.2 (3.5-5.0) g/dL Amylase 39 (30-110) U/L Lipase 36 (23-300) U/L Urine Color Yellow Urine Appearance Cloudy H (Clear) Urine pH 8.5 H (5.0-8.0) Ur Specific [place] 1.022 (1.001-1.035) Urine Protein 1+ H (Negative) Urine Glucose (UA) Trace H (Negative) Urine Ketones 4+ H (Negative) Urine Blood Negative (Negative) Urine Nitrite Negative (Negative) Urine Bilirubin Negative (Negative) Urine Urobilinogen <2.0 (<2.0) mg/dL Ur Leukocyte Esterase Negative (Negative) Urine WBC 1 (0-5) /hpf Ur Squamous Epith Cells 30 H (0-4) /hpf Urine Bacteria Rare H (None) /hpf Urine Mucus Many H (None) /hpf Disposition Clinical Impression: Nausea and vomiting Disposition: HOME SELF-CARE Condition: Good Instructions (If sedation given, give patient instructions): Acute Nausea and Vomiting (ED) Additional Instructions: take Zofran as needed for nausea. Follow up with primary care to review CT results including those of adrenalgland and old the spine fractures. Follow up with GI as well. If you have any worsening symptoms return to the emergency room. Prescriptions: Ondansetron [Zofran ODT] 4 mg PO Q8HR PRN #15 tab PRN Reason: Nausea Is patient prescribed a controlled substance at d/c from ED?: No Referrals: Nik Pratt DO [Primary Care Provider] - 1-2 days Time of Disposition: 17:56
[2020-04-11 16:30] LABS: ALT 10 U/L (4-34); AST 20 U/L (14-36); African American GFR (CKD) >90 (>60 ml/min/1.73 sqM); Albumin 4.2 g/dL (3.5-5.0); Alkaline Phosphatase 89 U/L (38-126); Amylase 39 U/L (30-110); Anion Gap 11 mmol/L; Blood Urea Nitrogen 7 mg/dL (7-17); Calcium 9.5 mg/dL (8.4-10.2); Carbon Dioxide 17 mmol/L (22-30); Chloride 108 mmol/L (98-107); Glucose 167 mg/dL (74-99); Non-African American GFR(CKD) >90 (>60 ml/min/1.73 sqM); Potassium 4.1 mmol/L (3.5-5.1); Sodium 136 mmol/L (137-145); Total Bilirubin 0.7 mg/dL (0.2-1.3); Total Protein 7.3 g/dL (6.3-8.2)
[2020-04-11 16:31] LABS: Basophils % (A) 0 %; Eosinophils # (A) 0.1 k/uL (0-0.7); Eosinophils % (A) 1 %; HGB 13.4 gm/dL (11.4-16.0); Hypochromasia Moderate; Lymphocytes # (A) 0.9 k/uL (1.0-4.8); Lymphocytes % (A) 9 %; MCH 24.9 pg (25.0-35.0); MCHC 31.2 g/dL (31.0-37.0); MCV 79.8 fL (80.0-100.0); Mean Platelet Volume 10.3; Monocytes # (A) 0.4 k/uL (0-1.0); Monocytes % (A) 4 %; Neutrophils # (A) 8.5 k/uL (1.3-7.7); Neutrophils % (A) 86 %; Platelet Count 335 k/uL (150-450); RDW 14.4 % (11.5-15.5); WBC 9.9 k/uL (3.8-10.6)
[2020-04-11 16:46] LABS: Appearance,Urine Cloudy (Clear); Bacteria,Urine Rare /hpf; Bilirubin,Urine Negative (Negative); Blood,Urine Negative (Negative); Color,Urine Yellow; Glucose,Urine (UA) Trace (Negative); Ketones,Urine 4+ (Negative); Leukocyte Esterase,Urine Negative (Negative); Mucus,Urine Many /hpf; Nitrite,Urine Negative (Negative); PH, Urine 8.5 (5.0-8.0); Protein,Urine 1+ (Negative); Specific Gravity,Urine 1.022 (1.001-1.035); Squamous Epithelial Cell,Urine 30 /hpf (0-4); Urobilinogen,Urine <2.0 mg/dL (<2.0); WBC,Urine 1 /hpf (0-5)
--- NOTE | 2020-04-11 16:51 | CT ---
EXAMINATION TYPE: CT abdomen pelvis w con DATE OF EXAM: 04/11/2020 COMPARISON: HISTORY: Abdominal pain and vomiting. CT DLP: 1262.4 mGycm Automated exposure control for dose reduction was used. CONTRAST: Performed with IV Contrast, patient injected with 100 mL of Isovue 300. Images were obtained from the diaphragm to the floor the pelvis with IV contrast. Lung bases are clear of consolidation. Heart appears normal. There is no pericardial effusion. There is small hiatal hernia. Liver spleen pancreas gallbladder appear normal. Bile ducts are not dilated. There is 2 cm low-density right adrenal mass. There is a 2 cm soft tissue density left adrenal mass. There is 2 cm cortical cyst lateral right kidney. Kidneys show normal excretion of contrast on the de layed images. There is no hydronephrosis. Ureters are not dilated. Kidneys have normal size. There is no retroperitoneal adenopathy. Bladder distends smoothly. Uterus is retroverted. Lumbar spine shows slight anterior wedging of T12 and T11 up to 20%. Unchanged.. There is no inguinal hernia. The bony p lima is intact. There is no ascites. There is no free air. There is mild wall thickening of the large bowel with fatt y infiltration. There are multiple sigmoid diverticula. I see no sign of diverticulitis. Appendix is not definitely seen. There is no sign of thickened appendix. IMPRESSION: Bilateral adrenal masses not significantly different than recent exam allowing for error of measureme nt. The appearance is nonspecific. Colonic lipomatosis. Old T11 and T12 compression fractures. There is clearing of the minimal diverticulitis compared to old exam. Some surveillance of the adrena l masses is recommended if there are no older exams to compare.
[2020-04-11] MEDS ORDERED: diphenhydrAMINE 50 MG/ML 1 ML VIAL IVP STA (17:02)
[2020-04-11] MEDS ORDERED: METOCLOPRAMIDE 5 MG/ML 2 ML VIAL IVP STA (17:02)
[2020-04-11 18:28] VITALS: BP 140/87; PULSE 71; RESP 16
== END 2020-04-11 18:00 | disposition home or self-care (01) ==
LOC: EC 14:45
DX: R11.2 Nausea with vomiting, unspecified (principal); E88.2 Lipomatosis, not elsewhere classified; M48.54XA Collapsed vertebra, not elsewhere classified, thoracic region, initial encounter for fracture; E27.9 Disorder of adrenal gland, unspecified; F17.200 Nicotine dependence, unspecified, uncomplicated; H91.90 Unspecified hearing loss, unspecified ear
CPT/HCPCS: 36415; 80053; 82150; 83690; 85025; 81001; 74177; 99284; 96374; 96375 ×2; 96361 ×2; J1200; J2765; J2405; Q9967

== ENCOUNTER → 2020-04-28 | Outpatient (CLI) | payer MEDICARE ==
--- NOTE | 2020-05-01 08:29 | MR ---
EXAMINATION TYPE: MR abdomen wo/w con DATE OF EXAM: 04/28/2020 COMPARISON: CT 04/11/2020 HISTORY: Other specified disorders of adrenal gland CONTRAST: Standard multiplanar, multisequence MRI departmental protocol utilizing 9.5 mL intravenous Gadavist g adolinium contrast. FINDINGS: Bilateral adrenal masses noted. Right adrenal mass measures 2.5 x 3.0 cm and on the left 1.9 x 2.0 cm . Patient motion does limit evaluation currently. There is mild dropout on the out of phase imaging s uggesting adrenal adenomas however examination is limited. Continued follow-up is advised at 6 months . Mild fatty hepatic infiltration. Cystic lesion anterior segment right hepatic lobe measuring 1 cm. Cy stic lesion mid pole right kidney measures 1.3 cm. No solid renal lesions. Pancreas, gallbladder and spleen are within normal limits. Hiatal hernia noted. Visualized portions of the abdominal aorta are normal caliber. No adenopathy within the [id number]. IMPRESSION: Somewhat limited examination due to patient motion. Suspect bilateral adrenal adenomas however follow -up in 6 months is advised.
== END | disposition home or self-care (01) ==
LOC: RADMRIMAIN 08:44
PROVIDERS: ATTEND Nurse Practitioner Family
DX: E27.8 Other specified disorders of adrenal gland (principal)
CPT/HCPCS: 74183; A9585

== ENCOUNTER → 2021-02-28 | Outpatient (CLI) | payer MEDICARE ==
[2021-02-28 14:05] LABS: INR 0.9 (<1.2); Partial Thromboplastin Time 22.9 sec (22.0-30.0); Prothrombin Time 9.7 sec (9.0-12.0)
[2021-02-28 18:58] LABS: HCT 42.5 % (37.2-46.3); HGB 13.3 g/dL (12.0-15.0); MCH 25.2 pg (27.0-32.0); MCHC 31.3 g/dL (32.0-37.0); MCV 80.6 fL (80.0-97.0); Mean Platelet Volume 9.9 fL (9.5-12.2); Platelet Count 417 X 10*3/uL (140-440); RBC 5.27 X 10*6/uL (4.10-5.20); WBC 9.06 X 10*3/uL (4.50-10.00)
[2021-02-28 22:07] LABS: Folate, Serum 4.9 ng/mL
[2021-02-28 22:26] LABS: % Iron Saturation 7.82 (12.00-45.00); ALT <8 U/L (8-44); AST 12 U/L (13-35); African American GFR (CKD) 126.7 (60.0-200.0); Albumin/Globulin Ratio 1.64 (1.60-3.17); Alkaline Phosphatase 89 U/L (41-126); Calcium 8.7 mg/dL (8.7-10.3); Carbon Dioxide 25.2 mmol/L (21.6-31.8); Chloride 109 mmol/L (96-109); Chol/HDL Ratio 3.71; Cholesterol 182 mg/dL (0-200); Ferritin 3.1 ng/mL (10.0-291.0); Globulin 2.5 g/dL (1.6-3.3); Glucose 116 mg/dL (70-110); Iron 28 ug/dL (50-170); LDL Cholesterol,Calculated 118.8 mg/dL (0.0-131.0); Magnesium 1.8 mg/dL (1.5-2.4); Non-African American GFR(CKD) 109.3 (60.0-200.0); Phosphorus 2.8 mg/dL (2.4-5.1); Potassium 4.4 mmol/L (3.5-5.5); Sodium 140 mmol/L (135-145); Total Bilirubin 0.4 mg/dL (0.3-1.2); Total Iron Binding Capacity 358 ug/dL (228-460); Total Protein 6.6 g/dL (6.2-8.2)
[2021-03-01 14:00] LABS: Zinc, Serum 62 ug/dL (60-130)
== END | disposition home or self-care (01) ==
LOC: LABWHC1 12:22
PROVIDERS: ATTEND Surgery Plastic and Reconstructive Surgery
DX: N19 Unspecified kidney failure (principal); K50.90 Crohn's disease, unspecified, without complications; K74.1 Hepatic sclerosis; E55.9 Vitamin D deficiency, unspecified; K90.89 Other intestinal malabsorption; D50.8 Other iron deficiency anemias; E89.1 Postprocedural hypoinsulinemia
CPT/HCPCS: 36415; 80053; 80061; 82525; 82607; 82728; 82746; 83540; 83550; 83735; 83970; 84100; 84134; 84255; 84425; 84443; 84590; 84630; 85027; 85610; 85730

== ENCOUNTER 2021-04-02 18:54 | Emergency (ER) | payer MEDICARE ==
[2021-04-02] MEDS ORDERED: METOCLOPRAMIDE 5 MG/ML 2 ML VIAL IVP STA (19:37)
[2021-04-02] MEDS ORDERED: LORazepam 2 MG/ML INJ IV STA (19:37)
[2021-04-02] MEDS ORDERED: SODIUM CHLORIDE 0.9% 2,000 ML IV STA (19:37)
--- NOTE | 2021-04-02 19:38 | ED ---
General Adult HPI - General Chief complaint: Nausea/Vomiting/Diarrhea Stated complaint: vomiting Time Seen by Provider: 04/02/21 19:12 Source: family Mode of arrival: ambulatory Limitations: no limitations - History of Present Illness Initial comments: 45-year-old female with a past medical history of deafness, anemia, chronic nausea vomiting presents to the emergency room for a chief complaint of nausea vomiting. Patient reports this has been ongoing for years. Patient states she has seen every specialist and they're unable to do department why she has these episodes. Patient states this episode has been ongoing for 2 days. States she has taken her Reglan and Zofran at home but it has not helped. States she has not used to keep down fluids at this time. Patient denies any abdominal pain associated with this. Denies fevers or chills. Patient does admit to diarrhea.Patient has no other complaints at this time including shortness of br eath, chest pain, abdominal pain, headache, or visual changes. - Related Data Home Medications Medication Instructions Recorded Confirmed Levocetirizine Dihydrochloride 5 mg PO HS 04/02/21 04/02/21 QUEtiapine [SEROquel] 100 mg PO HS 04/02/21 04/02/21 Allergies Allergy/AdvReac Type Severity Reaction Status Date / Time No Known Allergies Allergy Verified 04/02/21 20:00 Review of Systems ROS Statement: Those systems with pertinent positive or pertinent negative responses have been documented in the HPI. ROS Other: All systems not noted in ROS Statement are negative. Past Medical History Past Medical History: Hearing Disorder / Deafness, Musculoskeletal Disorder Additional Past Medical History / Comment(s): deaf (reads lips), anemia, had episode of palpitations years ago @[facility]-no current problems, fell & fx. left wrist @home on Sat.-wearing splint History of Any Multi-Drug Resistant Organisms: None Reported Past Surgical History: Section, Tonsillectomy Additional Past Surgical History / Comment(s): C/S x2, left arm surgery Past Anesthesia/Blood Transfusion Reactions: No Reported Reaction, Family History of Problems w/ Anesthesia Additional Past Anesthesia/Blood Transfusion Reaction / Comment(s): mom to slow to wake up Past Psychological History: No Psychological Hx Reported Smoking Status: Current every day smoker Past Alcohol Use History: None Reported Past Drug Use History: Marijuana - Past Family History Mother Family Medical History: Unable to Obtain General Exam Limitations: no limitations General appearance: alert Head exam: Present: atraumatic, normocephalic, normal inspection Eye exam: Present: normal appearance, PERRL, EOMI. Absent: scleral icterus, conjunctival injection, periorbital swelling ENT exam: Present: normal exam, mucous membranes moist Neck exam: Present: normal inspection, full ROM. Absent: tenderness, meningismus, lymphadenopathy Respiratory exam: Present: normal lung sounds bilaterally. Absent: respiratory distress, wheezes, rales, rhonchi, stridor Cardiovascular Exam: Present: regular rate, normal rhythm, normal heart sounds. Absent: systolic murmur, diastolic murmur, rubs, gallop, clicks GI/Abdominal exam: Present: soft, normal bowel sounds. Absent: distended, tenderness, guarding, rebound, rigid Course Vital Signs 04/02/21 04/02/21 18:58 20:10 Temperature 97.6 F Pulse Rate 98 71 Respiratory 20 18 Rate Blood Pressure 154/83 170/106 O2 Sat by Pulse 97 97 Oximetry Medical Decision Making - Medical Decision Making Vitals stable. CBC does show some mild leukocytosis likely secondary to vomiting. CMP unremarkable. Urinalysis does show 2+ ketones. Patient does have red blood cells in her urine as well that she will need to follow-up about. X-ray KUB shows a nonacute abdomen. Patient was given medications of fluids, had significant permanent symptoms. Patient be discharged home to follow-up with primary care. Will return here for any worsening symptoms. - Lab Data Result diagrams: 04/02/21 20:05 04/02/21 20:05 Lab Results 04/02/21 04/02/21 04/02/21 Range/Units 20:05 20:05 20:05 WBC 12.9 H (3.8-10.6) k/uL RBC 5.32 (3.80-5.40) m/uL Hgb 13.8 (11.4-16.0) gm/dL Hct 43.6 (34.0-46.0) % MCV 82.0 (80.0-100.0) fL MCH 26.0 (25.0-35.0) pg MCHC 31.7 (31.0-37.0) g/dL RDW 16.7 H (11.5-15.5) % Plt Count 419 (150-450) k/uL MPV 7.0 Neutrophils % 83 % Lymphocytes % 11 % Monocytes % 5 % Eosinophils % 0 % Basophils % 0 % Neutrophils # 10.7 H (1.3-7.7) k/uL Lymphocytes # 1.4 (1.0-4.8) k/uL Monocytes # 0.7 (0-1.0) k/uL Eosinophils # 0.0 (0-0.7) k/uL Basophils # 0.0 (0-0.2) k/uL Anisocytosis Slight Sodium 138 (137-145) mmol/L Potassium 4.3 (3.5-5.1) mmol/L Chloride 105 (98-107) mmol/L Carbon Dioxide 22 (22-30) mmol/L Anion Gap 11 mmol/L BUN 9 (7-17) mg/dL Creatinine 0.54 (0.52-1.04) mg/dL Est GFR (CKD-EPI)AfAm >90 (>60 ml/min/1.73 sqM) Est GFR (CKD-EPI)NonAf >90 (>60 ml/min/1.73 sqM) Glucose 152 H (74-99) mg/dL Calcium 9.7 (8.4-10.2) mg/dL Total Bilirubin 0.4 (0.2-1.3) mg/dL AST 18 (14-36) U/L ALT 8 (4-34) U/L Alkaline Phosphatase 100 (38-126) U/L Total Protein 7.3 (6.3-8.2) g/dL Albumin 4.3 (3.5-5.0) g/dL Amylase 50 (30-110) U/L Lipase 68 (23-300) U/L Urine Color Yellow Urine Appearance Cloudy H (Clear) Urine pH 8.5 H (5.0-8.0) Ur Specific [place] 1.031 (1.001-1.035) Urine Protein 1+ H (Negative) Urine Glucose (UA) Trace H (Negative) Urine Ketones 2+ H (Negative) Urine Blood Small H (Negative) Urine Nitrite Negative (Negative) Urine Bilirubin Negative (Negative) Urine Urobilinogen 2.0 (<2.0) mg/dL Ur Leukocyte Esterase Negative (Negative) Urine RBC 41 H (0-5) /hpf Urine WBC 1 (0-5) /hpf Ur Squamous Epith Cells 6 H (0-4) /hpf Urine Mucus Many H (None) /hpf Disposition Clinical Impression: Nausea & vomiting, Hematuria Disposition: HOME SELF-CARE Condition: Good Instructions (If sedation given, give patient instructions): Acute Nausea and Vomiting (ED) Additional Instructions: Please follow-up with your doctor. Return to the emergency room for any worsening symptoms. Is patient prescribed a controlled substance at d/c from ED?: No Referrals: Nik Pratt DO [Primary Care Provider] - 1-2 days Time of Disposition: 20:51
[2021-04-02] MEDS: diphenhydrAMINE 50 MG/ML 1 ML VIAL IVP STA ×2 (19:53→20:13)
[2021-04-02 20:11] VITALS: RESP 18
[2021-04-02 20:16] LABS: Anisocytosis Slight; Basophils % (A) 0 %; Eosinophils % (A) 0 %; HCT 43.6 % (34.0-46.0); HGB 13.8 gm/dL (11.4-16.0); Lymphocytes # (A) 1.4 k/uL (1.0-4.8); Lymphocytes % (A) 11 %; MCHC 31.7 g/dL (31.0-37.0); Monocytes # (A) 0.7 k/uL (0-1.0); Monocytes % (A) 5 %; Neutrophils # (A) 10.7 k/uL (1.3-7.7); Neutrophils % (A) 83 %; Platelet Count 419 k/uL (150-450); RBC 5.32 m/uL (3.80-5.40); RDW 16.7 % (11.5-15.5); WBC 12.9 k/uL (3.8-10.6)
--- NOTE | 2021-04-02 20:16 | XR ---
EXAMINATION TYPE: XR KUB DATE OF EXAM: 04/02/2021 COMPARISON: NONE HISTORY: Pain TECHNIQUE: 2 views upright FINDINGS: There is no sign of intestinal obstruction or pneumoperitoneum. Fecal pattern is normal. Th ere is no evidence of a mass. There are no pathologic calcifications over the kidneys. Lung bases are clear. IMPRESSION: Nonacute abdomen.
[2021-04-02 20:20] LABS: Appearance,Urine Cloudy (Clear); Bilirubin,Urine Negative (Negative); Blood,Urine Small (Negative); Color,Urine Yellow; Glucose,Urine (UA) Trace (Negative); Ketones,Urine 2+ (Negative); Leukocyte Esterase,Urine Negative (Negative); Mucus,Urine Many /hpf; Nitrite,Urine Negative (Negative); PH, Urine 8.5 (5.0-8.0); Protein,Urine 1+ (Negative); RBC,Urine 41 /hpf (0-5); Specific Gravity,Urine 1.031 (1.001-1.035); Squamous Epithelial Cell,Urine 6 /hpf (0-4); WBC,Urine 1 /hpf (0-5)
[2021-04-02 20:27] LABS: ALT 8 U/L (4-34); AST 18 U/L (14-36); African American GFR (CKD) >90 (>60 ml/min/1.73 sqM); Albumin 4.3 g/dL (3.5-5.0); Alkaline Phosphatase 100 U/L (38-126); Amylase 50 U/L (30-110); Anion Gap 11 mmol/L; Blood Urea Nitrogen 9 mg/dL (7-17); Calcium 9.7 mg/dL (8.4-10.2); Carbon Dioxide 22 mmol/L (22-30); Chloride 105 mmol/L (98-107); Glucose 152 mg/dL (74-99); Lipase 68 U/L (23-300); Non-African American GFR(CKD) >90 (>60 ml/min/1.73 sqM); Potassium 4.3 mmol/L (3.5-5.1); Sodium 138 mmol/L (137-145); Total Bilirubin 0.4 mg/dL (0.2-1.3); Total Protein 7.3 g/dL (6.3-8.2)
[2021-04-02 21:13] VITALS: BP 156/104; PULSE 95; TEMP 98.1
== END 2021-04-02 21:02 | disposition home or self-care (01) ==
LOC: EC 18:54
DX: R11.2 Nausea with vomiting, unspecified (principal); R31.9 Hematuria, unspecified; R19.7 Diarrhea, unspecified; H91.90 Unspecified hearing loss, unspecified ear; F17.200 Nicotine dependence, unspecified, uncomplicated; Z79.899 Other long term (current) drug therapy; F12.90 Cannabis use, unspecified, uncomplicated
CPT/HCPCS: 36415; 80053; 82150; 83690; 85025; 81001; 74018; 99284; 96374; 96375; J2060; J2765

== ENCOUNTER → 2021-04-30 | Outpatient (CLI) | payer MEDICARE | END | disposition home or self-care (01) | LOC: LABWHC1 12:07 | PROVIDERS: ATTEND Internal Medicine Clinical Cardiac Electrophysiology | DX: D35.01 Benign neoplasm of right adrenal gland (principal); D35.02 Benign neoplasm of left adrenal gland | CPT/HCPCS: 36415; 82088; 82533; 83835; 84244; 84439; 84443; 84481 ==

== ENCOUNTER 2021-05-15 08:30 | Emergency (ER) | payer MEDICARE ==
[2021-05-15 08:33] VITALS: BP 150/85; PULSE 102; RESP 18; TEMP 97.4
[2021-05-15] MEDS ORDERED: SODIUM CHLORIDE 0.9% 1,000 ML IV STA (09:26)
[2021-05-15] MEDS ORDERED: METOCLOPRAMIDE 5 MG/ML 2 ML VIAL IVP STA (09:26)
[2021-05-15] MEDS ORDERED: LORazepam 2 MG/ML INJ IV STA (09:27)
[2021-05-15] MEDS ORDERED: FAMOTIDINE 20 MG/2 ML VIAL IV STA (09:27)
--- NOTE | 2021-05-15 09:28 | ED ---
General Adult HPI - General Chief complaint: Nausea/Vomiting/Diarrhea Stated complaint: Vomiting Time Seen by Provider: 05/15/21 08:39 Source: patient, RN notes reviewed Mode of arrival: wheelchair Limitations: no limitations, language barrier (Patient is hard of hearing but reads lips. Family is also present.) - History of Present Illness Initial comments: Patient is a pleasant 45-year-old female presenting to the emergency Department with complaints of nausea and vomiting. Onset of symptoms was around 24 hours. Patient has had recurrent episodes multiple times over the past couple years. Patient has had multiple evaluations from multiple physicians including multiple scopes. Patient has had nausea and vomiting. Patient is also having occasional diarrhea. Patient also has chronic diarrhea associated with this. Patient has yet to receive a formal diagnosis. No fevers. No abdominal pain. - Related Data Home Medications Medication Instructions Recorded Confirmed Levocetirizine Dihydrochloride 5 mg PO HS 04/02/21 05/15/21 QUEtiapine [SEROquel] 100 mg PO HS 04/02/21 05/15/21 Hydroxychloroquine Sulfate 200 mg PO BID 05/15/21 05/15/21 [Plaquenil] Previous Rx's Medication Instructions Recorded Metoclopramide HCl [Reglan] 10 mg PO Q6HR PRN #10 tablet 05/15/21 Allergies Allergy/AdvReac Type Severity Reaction Status Date / Time Milk Containing Products Allergy Unknown Verified 05/15/21 09:56 Review of Systems ROS Statement: Those systems with pertinent positive or pertinent negative responses have been documented in the HPI. ROS Other: All systems not noted in ROS Statement are negative. Constitutional: Denies: fever Eyes: Denies: eye pain ENT: Denies: ear pain Respiratory: Denies: cough Cardiovascular: Denies: chest pain Endocrine: Denies: fatigue Gastrointestinal: Reports: as per HPI, nausea, vomiting, diarrhea. Denies: abdominal pain Genitourinary: Denies: dysuria Musculoskeletal: Denies: back pain Skin: Denies: rash Neurological: Denies: weakness Past Medical History Past Medical History: Hearing Disorder / Deafness, Musculoskeletal Disorder Additional Past Medical History / Comment(s): deaf (reads lips), anemia, had episode of palpitations years ago @[facility]-no current problems, fell & fx. left wrist @home on Sat.-wearing splint History of Any Multi-Drug Resistant Organisms: None Reported Past Surgical History: Section, Tonsillectomy Additional Past Surgical History / Comment(s): C/S x2, left arm surgery Past Anesthesia/Blood Transfusion Reactions: No Reported Reaction, Family History of Problems w/ Anesthesia Additional Past Anesthesia/Blood Transfusion Reaction / Comment(s): mom to slow to wake up Past Psychological History: No Psychological Hx Reported Smoking Status: Current every day smoker Past Alcohol Use History: None Reported Past Drug Use History: Marijuana - Past Family History Mother Family Medical History: Unable to Obtain General Exam Limitations: no limitations General appearance: alert, in no apparent distress Head exam: Present: normocephalic Eye exam: Present: normal appearance Neck exam: Present: normal inspection Respiratory exam: Present: normal lung sounds bilaterally Cardiovascular Exam: Present: regular rate, normal rhythm GI/Abdominal exam: Present: soft. Absent: tenderness Extremities exam: Present: normal inspection Neurological exam: Present: alert Psychiatric exam: Present: normal affect, normal mood Skin exam: Present: normal color Course Vital Signs 05/15/21 08:31 Temperature 97.4 F L Pulse Rate 102 H Respiratory 18 Rate Blood Pressure 150/85 O2 Sat by Pulse 96 Oximetry Medical Decision Making - Medical Decision Making Patient reevaluated and resting comfortably in bed. Patient is feeling better following Ativan and Reglan. Patient and family updated on results and need for follow-up. - Lab Data Result diagrams: 05/15/21 09:41 05/15/21 09:41 Lab Results 05/15/21 05/15/21 Range/Units 09:41 09:41 WBC 12.8 H (3.8-10.6) k/uL RBC 5.49 H (3.80-5.40) m/uL Hgb 15.0 (11.4-16.0) gm/dL Hct 44.3 (34.0-46.0) % MCV 80.7 (80.0-100.0) fL MCH 27.3 (25.0-35.0) pg MCHC 33.9 (31.0-37.0) g/dL RDW 15.6 H (11.5-15.5) % Plt Count 456 H (150-450) k/uL MPV 7.1 Neutrophils % 88 % Lymphocytes % 7 % Monocytes % 3 % Eosinophils % 0 % Basophils % 1 % Neutrophils # 11.2 H (1.3-7.7) k/uL Lymphocytes # 0.9 L (1.0-4.8) k/uL Monocytes # 0.4 (0-1.0) k/uL Eosinophils # 0.0 (0-0.7) k/uL Basophils # 0.1 (0-0.2) k/uL Sodium 137 (137-145) mmol/L Potassium 3.6 (3.5-5.1) mmol/L Chloride 100 (98-107) mmol/L Carbon Dioxide 25 (22-30) mmol/L Anion Gap 12 mmol/L BUN 8 (7-17) mg/dL Creatinine 0.47 L (0.52-1.04) mg/dL Est GFR (CKD-EPI)AfAm >90 (>60 ml/min/1.73 sqM) Est GFR (CKD-EPI)NonAf >90 (>60 ml/min/1.73 sqM) Glucose 172 H (74-99) mg/dL Calcium 9.9 (8.4-10.2) mg/dL Total Bilirubin 0.5 (0.2-1.3) mg/dL AST 19 (14-36) U/L ALT 9 (4-34) U/L Alkaline Phosphatase 101 (38-126) U/L Total Protein 7.7 (6.3-8.2) g/dL Albumin 4.5 (3.5-5.0) g/dL Amylase 45 (30-110) U/L Lipase 24 (23-300) U/L Disposition Clinical Impression: Vomiting Disposition: HOME SELF-CARE Condition: Stable Instructions (If sedation given, give patient instructions): Acute Nausea and Vomiting (ED) Additional Instructions: Please follow-up with your primary care physician in the next couple days for recheck. Also follow-up to applied marine physics professor. Return for uncontrolled vomiting, abdominal pain, fevers, uncontrolled diarrhea, worsening symptoms or other concerns. Prescription has been sent to your pharmacy Prescriptions: Metoclopramide HCl [Reglan] 10 mg PO Q6HR PRN #10 tablet PRN Reason: Nausea Is patient prescribed a controlled substance at d/c from ED?: No Referrals: Nik Pratt DO [Primary Care Provider] - 1-2 days Leslie Sher MD [STAFF PHYSICIAN] - 1-2 days Time of Disposition: 10:48
[2021-05-15 10:16] LABS: Basophils # (A) 0.1 k/uL (0-0.2); Basophils % (A) 1 %; Eosinophils % (A) 0 %; HCT 44.3 % (34.0-46.0); Lymphocytes # (A) 0.9 k/uL (1.0-4.8); Lymphocytes % (A) 7 %; MCH 27.3 pg (25.0-35.0); MCHC 33.9 g/dL (31.0-37.0); MCV 80.7 fL (80.0-100.0); Mean Platelet Volume 7.1; Monocytes # (A) 0.4 k/uL (0-1.0); Monocytes % (A) 3 %; Neutrophils # (A) 11.2 k/uL (1.3-7.7); Neutrophils % (A) 88 %; Platelet Count 456 k/uL (150-450); RBC 5.49 m/uL (3.80-5.40); RDW 15.6 % (11.5-15.5); WBC 12.8 k/uL (3.8-10.6)
[2021-05-15 10:35] LABS: ALT 9 U/L (4-34); AST 19 U/L (14-36); African American GFR (CKD) >90 (>60 ml/min/1.73 sqM); Albumin 4.5 g/dL (3.5-5.0); Alkaline Phosphatase 101 U/L (38-126); Amylase 45 U/L (30-110); Anion Gap 12 mmol/L; Blood Urea Nitrogen 8 mg/dL (7-17); Calcium 9.9 mg/dL (8.4-10.2); Carbon Dioxide 25 mmol/L (22-30); Chloride 100 mmol/L (98-107); Glucose 172 mg/dL (74-99); Lipase 24 U/L (23-300); Non-African American GFR(CKD) >90 (>60 ml/min/1.73 sqM); Potassium 3.6 mmol/L (3.5-5.1); Sodium 137 mmol/L (137-145); Total Bilirubin 0.5 mg/dL (0.2-1.3); Total Protein 7.7 g/dL (6.3-8.2)
== END 2021-05-15 11:25 | disposition home or self-care (01) ==
LOC: EC 08:30
DX: R11.2 Nausea with vomiting, unspecified (principal); F17.200 Nicotine dependence, unspecified, uncomplicated; F12.90 Cannabis use, unspecified, uncomplicated; Z90.89 Acquired absence of other organs
CPT/HCPCS: 99284; 96374; 96375 ×2; 96361; 36415; 80053; 82150; 83690; 85025; J2060; J2765

== ENCOUNTER → 2021-08-14 | Outpatient (CLI) | payer MEDICARE ==
--- NOTE | 2021-08-15 05:02 | MR ---
EXAMINATION TYPE: MR abdomen wo/w con DATE OF EXAM: 08/14/2021 COMPARISON: 04/28/2020 HISTORY: HX of adrenal mass CONTRAST: Standard multiplanar, multisequence MRI departmental protocol images were obtained without contrast a nd with 8 mL intravenous Gadavist gadolinium contrast. Exam limited somewhat by motion. The liver is intact. There is no evidence of pleural effusion. Splee n is intact. There is no sign of pancreatic mass. The stomach is intact. There is a oval-shaped 3.7 x 1.7 cm mass involving the right adrenal gland with lower signal on the T 2 images. This does not appear to be enhancing. The contrast images are limited by motion. Kidneys have normal size and contour. There is no hydronephrosis. The lesion on old exam appears to show signal loss on the out of phase images that suggests significa nt amount of fat. There is no evidence of retroperitoneal adenopathy. There is oval-shaped 3 x 1.3 cm low signal mass involving the left adrenal gland without enhancement. The indentation out of phase images are limited by motion. IMPRESSION: Bilateral adrenal mass is not significantly different than old exam and suggestive of benign disease. 1 cm cortical cyst lateral right kidney without change. No suspicious renal mass.
== END | disposition home or self-care (01) ==
LOC: RADMRIMAIN 09:32
PROVIDERS: ATTEND Family Medicine
DX: E27.8 Other specified disorders of adrenal gland (principal); N28.1 Cyst of kidney, acquired
CPT/HCPCS: 74183; A9585

== ENCOUNTER 2021-10-02 16:46 | Emergency (ER) | payer MEDICARE ==
[2021-10-02 16:57] VITALS: RESP 20; TEMP 97.6
[2021-10-02] MEDS ORDERED: diphenhydrAMINE 50 MG/ML 1 ML VIAL IVP STA (17:06)
[2021-10-02] MEDS ORDERED: METOCLOPRAMIDE 5 MG/ML 2 ML VIAL IVP STA (17:06)
[2021-10-02] MEDS ORDERED: SODIUM CHLORIDE 0.9% 1,000 ML IV STA (17:06)
[2021-10-02] MEDS ORDERED: LORazepam 2 MG/ML INJ IV STA (17:07)
--- NOTE | 2021-10-02 17:12 | ED ---
Nausea/Vomiting/Diarrhea HPI - General Chief complaint: Nausea/Vomiting/Diarrhea Stated complaint: N&V Time Seen by Provider: 10/02/21 16:59 Source: patient, RN notes reviewed Mode of arrival: wheelchair Limitations: no limitations - History of Present Illness Initial comments: This is a pleasant 46-year-old deaf female who presents to emergency department complaining of watery vomiting and watery diarrhea which started this morning. Patient has had many episodes of this in the past and in fact has seen gastroenterology in this town as well as down in the [place] area. Patient has been to multiple specialists. This going on for 2 or 3 years. Patient states she has actually been prescribed marijuana she smokes on a daily basis. She came in she received a dose of metoclopramide and lorazepam. Patient denying any pain. She denies any hematemesis or coffee-ground emesis. No melena or hematochezia. No headache, no fever or chills, no changes in vision or hearing, no sore throat or difficulty with speech, no neck pain, no chest pain or shortness of breath, no abdominal pain, no dysuria. No numbness or tingling, no extremity pain, no skin rashes or lesions. - Related Data Home Medications Medication Instructions Recorded Confirmed QUEtiapine [SEROquel] 100 mg PO HS 04/02/21 10/02/21 Levocetirizine Dihydrochloride 5 mg PO DAILY 10/02/21 10/02/21 [Xyzal] Previous Rx's Medication Instructions Recorded Omeprazole [PriLOSEC] 20 mg PO DAILY #30 cap 10/02/21 Allergies Allergy/AdvReac Type Severity Reaction Status Date / Time Milk Containing Products Allergy Unknown Verified 10/02/21 17:42 Review of Systems ROS Statement: Those systems with pertinent positive or pertinent negative responses have been documented in the HPI. ROS Other: All systems not noted in ROS Statement are negative. Past Medical History Past Medical History: Hearing Disorder / Deafness, Musculoskeletal Disorder Additional Past Medical History / Comment(s): deaf (reads lips), anemia, had episode of palpitations years ago @[facility]-no current problems, fell & fx. left wrist @home on Sat.-wearing splint History of Any Multi-Drug Resistant Organisms: None Reported Past Surgical History: Section, Tonsillectomy Additional Past Surgical History / Comment(s): C/S x2, left arm surgery Past Anesthesia/Blood Transfusion Reactions: No Reported Reaction, Family Hi story of Problems w/ Anesthesia Additional Past Anesthesia/Blood Transfusion Reaction / Comment(s): mom to slow to wake up Past Psychological History: No Psychological Hx Reported Smoking Status: Current every day smoker Past Alcohol Use History: None Reported Past Drug Use History: Marijuana - Past Family History Mother Family Medical History: Unable to Obtain General Exam Limitations: no limitations General appearance: alert, in distress Head exam: Present: atraumatic, normocephalic, normal inspection Eye exam: Present: normal appearance, PERRL, EOMI. Absent: scleral icterus, conjunctival injection, periorbital swelling ENT exam: Present: normal exam, normal oropharynx, mucous membranes moist, TM's normal bilaterally, normal external ear exam Neck exam: Present: normal inspection, full ROM. Absent: tenderness, meningismus, lymphadenopathy Respiratory exam: Present: normal lung sounds bilaterally. Absent: respiratory distress, wheezes, rales, rhonchi, stridor Cardiovascular Exam: Present: regular rate, normal rhythm, normal heart sounds. Absent: systolic murmur, diastolic murmur, rubs, gallop, clicks GI/Abdominal exam: Present: soft, normal bowel sounds. Absent: distended, tenderness, guarding, rebound, rigid Extremities exam: Present: normal inspection, full ROM, normal capillary refill. Absent: tenderness, pedal edema, joint swelling, calf tenderness Back exam: Present: normal inspection Neurological exam: Present: alert, oriented X3, CN II-XII intact Psychiatric exam: Present: normal affect, normal mood Skin exam: Present: warm, dry, intact, normal color. Absent: rash Course Vital Signs 10/02/21 10/02/21 16:55 19:00 Temperature 97.6 F Pulse Rate 91 98 Respiratory 20 20 Rate Blood Pressure 165/89 170/96 O2 Sat by Pulse 94 L 98 Oximetry - Reevaluation(s) Reevaluation #1: 10/02/21 18:17 Medical record is reviewed Patient was reevaluated and states she essentially feels the same although she has not vomited since the medications. Patient requesting something else. Noted the patient states that Zofran has been ineffective for her in the past. Haldol 2.5 mg IV push ordered. Patient is informed of results and questions answered Patient in no distress Reevaluation #2: 10/02/21 18:17 [id number] Patient noted to have leukocytosis. Reevaluation and repeat abdominal examination is benign. Patient does not appear to be ill or toxic. I suspect this leukocytosis is related to vomiting. Patient has no chest pain or abdominal pain. We will order a chest x-ray and abdominal x-rays for completeness sake. Reevaluation #3: 10/02/21 19:19 Medical record is reviewed Symptoms are improved here in the emergency department Patient is informed of results and questions answered Patient in no distress Medical Decision Making - Medical Decision Making This is a generally healthy-appearing 46-year-old female who comes in with recurrent nausea, vomiting, diarrhea. Patient has had many episodes of this in the past in fact has seen multiple specialists and physicians. She does not have a definitive diagnosis but was stating that she was told she has a cyst on her adrenal gland which may cause too much hormone secretion. Patient has no symptomology consistent with cardiopulmonary disease. There is no abdominal pain or tenderness. Note that the patient refused x-rays. Patient is lucid, coherent, alert and oriented 4, and able to make her own medical decisions. Discussed risks versus benefits. Patient also refusing urinalysis. Patient wants to go. Patient states she is feeling better. Patient states the symptoms are consistent with what she has felt in the past. Patient states if she goes home and sleeps it off symptoms usually resolve. Of course I reiterated to both her and her relative that they can return at any time if any symptoms worsen any other problems arise. Patient voices understanding. All questions answered. Advised clear liquids for 24 hours. The case was discussed in detail with ED attending physician. Presentation, findings, treatment plan discussed in detail. Patient was told to return to the ER for any signs or symptoms worsen. Told to return immediately if any other problems arise. All questions answered. Treatment plan discussed. Patient in agreement - Lab Data Result diagrams: 10/02/21 17:19 10/02/21 17:19 Lab Results 10/02/21 10/02/21 Range/Units 17:19 17:19 WBC 16.1 H (3.8-10.6) k/uL RBC 5.47 H (3.80-5.40) m/uL Hgb 14.4 (11.4-16.0) gm/dL Hct 45.1 (34.0-46.0) % MCV 82.5 (80.0-100.0) fL MCH 26.3 (25.0-35.0) pg MCHC 31.9 (31.0-37.0) g/dL RDW 17.8 H (11.5-15.5) % Plt Count 354 (150-450) k/uL MPV 7.1 Neutrophils % 89 % Lymphocytes % 6 % Monocytes % 3 % Eosinophils % 1 % Basophils % 0 % Neutrophils # 14.4 H (1.3-7.7) k/uL Lymphocytes # 0.9 L (1.0-4.8) k/uL Monocytes # 0.5 (0-1.0) k/uL Eosinophils # 0.1 (0-0.7) k/uL Basophils # 0.0 (0-0.2) k/uL Anisocytosis Slight Sodium 139 (137-145) mmol/L Potassium 4.3 (3.5-5.1) mmol/L Chloride 108 H (98-107) mmol/L Carbon Dioxide 21 L (22-30) mmol/L Anion Gap 10 mmol/L BUN 10 (7-17) mg/dL Creatinine 0.52 (0.52-1.04) mg/dL Est GFR (CKD-EPI)AfAm >90 (>60 ml/min/1.73 sqM) Est GFR (CKD-EPI)NonAf >90 (>60 ml/min/1.73 sqM) Glucose 172 H (74-99) mg/dL Calcium 9.6 (8.4-10.2) mg/dL Total Bilirubin 0.9 (0.2-1.3) mg/dL AST 20 (14-36) U/L ALT 12 (4-34) U/L Alkaline Phosphatase 99 (38-126) U/L Total Protein 7.7 (6.3-8.2) g/dL Albumin 4.3 (3.5-5.0) g/dL Lipase 38 (23-300) U/L Disposition Clinical Impression: Recurrent vomiting Disposition: HOME SELF-CARE Condition: Good Instructions (If sedation given, give patient instructions): Acute Nausea and Vomiting (ED) Additional Instructions: Follow-up with your regular physician as directed. Return to the ER immediately if any symptoms worsen, new symptoms arise, or any other problems develop. Answered the call your regular doctor tomorrow for follow-up appointment without fail. Prescriptions: Omeprazole [PriLOSEC] 20 mg PO DAILY #30 cap Is patient prescribed a controlled substance at d/c from ED?: No Referrals: Nik Pratt DO [Primary Care Provider] - 1-2 days Time of Disposition: 19:19
[2021-10-02 17:29] LABS: Anisocytosis Slight; Basophils % (A) 0 %; Eosinophils # (A) 0.1 k/uL (0-0.7); Eosinophils % (A) 1 %; HCT 45.1 % (34.0-46.0); HGB 14.4 gm/dL (11.4-16.0); Lymphocytes # (A) 0.9 k/uL (1.0-4.8); Lymphocytes % (A) 6 %; MCH 26.3 pg (25.0-35.0); MCHC 31.9 g/dL (31.0-37.0); MCV 82.5 fL (80.0-100.0); Mean Platelet Volume 7.1; Monocytes # (A) 0.5 k/uL (0-1.0); Monocytes % (A) 3 %; Neutrophils # (A) 14.4 k/uL (1.3-7.7); Neutrophils % (A) 89 %; Platelet Count 354 k/uL (150-450); RBC 5.47 m/uL (3.80-5.40); RDW 17.8 % (11.5-15.5); WBC 16.1 k/uL (3.8-10.6)
[2021-10-02 17:41] LABS: ALT 12 U/L (4-34); AST 20 U/L (14-36); African American GFR (CKD) >90 (>60 ml/min/1.73 sqM); Albumin 4.3 g/dL (3.5-5.0); Alkaline Phosphatase 99 U/L (38-126); Anion Gap 10 mmol/L; Blood Urea Nitrogen 10 mg/dL (7-17); Calcium 9.6 mg/dL (8.4-10.2); Carbon Dioxide 21 mmol/L (22-30); Chloride 108 mmol/L (98-107); Glucose 172 mg/dL (74-99); Lipase 38 U/L (23-300); Non-African American GFR(CKD) >90 (>60 ml/min/1.73 sqM); Potassium 4.3 mmol/L (3.5-5.1); Sodium 139 mmol/L (137-145); Total Bilirubin 0.9 mg/dL (0.2-1.3); Total Protein 7.7 g/dL (6.3-8.2)
[2021-10-02] MEDS ORDERED: HALOPERIDOL LACTATE 5 MG/ML 1 ML VIAL IVP STA (18:16)
[2021-10-02 19:05] VITALS: BP 170/96; PULSE 98
== END 2021-10-02 20:17 | disposition home or self-care (01) ==
LOC: EC 16:46
DX: R11.10 Vomiting, unspecified (principal); F17.200 Nicotine dependence, unspecified, uncomplicated; F12.90 Cannabis use, unspecified, uncomplicated; Z79.899 Other long term (current) drug therapy
CPT/HCPCS: 36415; 80053; 83690; 85025; 99284; 96374; 96375 ×2; 96361 ×2; J2060; J1630; J2765

== ENCOUNTER → 2022-07-21 | Outpatient (CLI) | payer MEDICARE ==
--- NOTE | 2022-07-21 14:40 | US ---
EXAMINATION TYPE: US pelvis complete transvag DATE OF EXAM: 07/21/2022 COMPARISON: CT April 11, 2020 CLINICAL HISTORY: N92.5 OTH SPECIFIED IRREGULAR MENSTRUATION. Pt states abnormal vaginal bleeding sin ce ablation in September of 2020 TECHNIQUE: Transvaginal (TV) and Transabdominal (TA) . Transabdominal sonographic images of the pel vis were acquired. Transvaginal sonographic images were medically necessary to better assess the fol lowing anatomy: Uterus, Ovaries, and endometrium Date of LMP: 3 weeks ago EXAM MEASUREMENTS: Uterus: 10.4 x 5.0 x 6.0 cm Endometrial Stripe: 1.0 cm Right Ovary: 3.6 x 2.0 x 2.6 cm Left Ovary: 3.8 x 1.9 x 2.0 cm 1. Uterus: Retroverted Heterogeneous with possible small fibroid lower uterine segment right side= 0 .8 x 0.6 x 1.2 cm 2. Endometrium: Not well delineated due to history of ablation, 3. Right Ovary: wnl, follicles 4. Left Ovary: wnl, follicles 5. Bilateral Adnexa: wnl 6. Posterior cul-de-sac: wnl Heterogeneous slightly retroflex uterus with suggestion of near 1.0 cm intramural fibroid. Endometria l stripe not seen with certainty. No free fluid in pelvic cul-de-sac. Ovaries symmetric and normal in size with a few peripheral follicles seen bilaterally. IMPRESSION: Possible 1.0 cm intramural fibroid. Suspect successful ablation with poorly visualized en dometrial stripe.
== END | disposition home or self-care (01) ==
LOC: RADUSWWP 13:27
PROVIDERS: ATTEND Obstetrics & Gynecology Obstetrics
DX: N92.5 Other specified irregular menstruation (principal)
CPT/HCPCS: 76830; 76856

== ENCOUNTER → 2022-10-11 | Outpatient (CLI) | payer MEDICARE ==
[2022-10-11 09:00] LABS: ALT 14 U/L (4-34); AST 17 U/L (14-36); African American GFR (CKD) >90 (>60 ml/min/1.73 sqM); Albumin 4.1 g/dL (3.5-5.0); Alkaline Phosphatase 67 U/L (38-126); Anion Gap 4 mmol/L; Blood Urea Nitrogen 13 mg/dL (7-17); Carbon Dioxide 26 mmol/L (22-30); Chloride 110 mmol/L (98-107); Glucose 101 mg/dL (74-99); Non-African American GFR(CKD) >90 (>60 ml/min/1.73 sqM); Potassium 4.9 mmol/L (3.5-5.1); Sodium 140 mmol/L (137-145); Total Bilirubin 0.6 mg/dL (0.2-1.3); Total Protein 7.1 g/dL (6.3-8.2)
== END | disposition home or self-care (01) ==
LOC: LAB 08:16
PROVIDERS: ATTEND Internal Medicine
DX: R11.2 Nausea with vomiting, unspecified (principal); R63.6 Underweight
CPT/HCPCS: 80053; 82024; 82533

== ENCOUNTER → 2023-07-01 | Outpatient (CLI) | payer OTHER ==
--- NOTE | 2023-07-01 23:25 | US ---
EXAMINATION TYPE: US abdomen limited DATE OF EXAM: 07/01/2023 COMPARISON: NONE CLINICAL INDICATION: Female, 48 years old with history of E78.89 OTHER LIPOPROTEIN METABOLISM DISORDE RS; weight loss abd labs panc. TECHNIQUE: Multiple sonographic images of the right upper quadrant are obtained. FINDINGS: EXAM MEASUREMENTS: Liver Length: 16.7 cm Gallbladder Wall: .2 cm CBD: .4 cm Right Kidney: 10.9 x 4.4 x 5.0 cm [employer] ASSEM[employer]ER NOTES: Pancreas: wnl Liver: Hyperechoic area seen .8 x 1.0 x .8 cm Gallbladder: No stones seen Evidence for sonographic Apple's sign: No CBD: wnl Right Kidney: wnl IMPRESSION: 1. Hyperechoic lesion within the liver could be a hemangioma. This could be further evaluated with co ntrast CT 2. Hepatomegaly
== END | disposition home or self-care (01) ==
LOC: RADUSWWP 12:08
PROVIDERS: ATTEND Family Medicine
DX: E78.89 Other lipoprotein metabolism disorders (principal); R16.0 Hepatomegaly, not elsewhere classified; R63.4 Abnormal weight loss
CPT/HCPCS: 76705

== ENCOUNTER → 2023-08-10 | Outpatient (CLI) | payer OTHER ==
--- NOTE | 2023-08-10 19:13 | CT ---
EXAMINATION TYPE: CT abdomen pelvis w con DATE OF EXAM: 08/10/2023 COMPARISON: 04/11/2020 INDICATION: hepatomegely and abdominal pain DLP: 508.90 mGycm, Automated exposure control for dose reduction was used. CONTRAST: 100ml mL of Isovue 300. Study performed with Oral Contrast TECHNIQUE: Axial images were obtained from above the diaphragm to the pubic rami in the axial plane a t 5 mm thick sections. Reconstructed images are reviewed on the computer in the coronal plane. FINDINGS: Limited CT sections are obtained the lung bases. The lung bases are clear. Small hiatal hernia is p resent. CT ABDOMEN: Liver: There is enlarged measuring 19.5 cm in craniocaudal dimension. Normal limits 15.5 cm. Spleen: Normal Pancreas: Normal Adrenal glands: The adrenal glands are normal. Gallbladder: Normal Kidneys: No masses are evident. No hydronephrosis is present. No cysts are present. Delayed images were obtained through the kidneys, which remain unremarkable. Aorta: Normal Inferior vena cava: Normal. CT PELVIS: Moderate fecal retention is through the colon. Few diverticuli within the sigmoid colon. Small bowel loops distended with oral contrast. Unremarkable. There are loops of bowel which are incompletely dis tended or lack oral contrast limiting their evaluation. Appendix: Not identified. Urinary bladder: Normal. Genitourinary structures: Uterus is within the posterior pelvis. Right adnexa contains a 2.1 cm cyst. Left adnexa appears normal. Osseous structures: No suspicious lytic or sclerotic lesions. Couple of small bone islands may be at the right sacroiliac joint within the sacral alar and ileum IMPRESSION: 1. Hepatomegaly
== END | disposition home or self-care (01) ==
LOC: RADCTMAIN 10:40
PROVIDERS: ATTEND Family Medicine
DX: R16.0 Hepatomegaly, not elsewhere classified (principal)
CPT/HCPCS: 74177; Q9967

== ENCOUNTER 2023-11-12 00:59 | Emergency (ER) | payer SELFPAY ==
--- NOTE | 2023-11-12 01:34 | ED ---
General Adult HPI - General Chief complaint: GI Bleed Stated complaint: rectal bleeding abd pressure Time Seen by Provider: 11/12/23 01:12 Source: patient Mode of arrival: ambulatory Limitations: no limitations - History of Present Illness Initial comments: 48-year-old female presenting to the ED with a chief complaint of rectal bleeding. Patient states for the past 5 days whenever she is using the restroom has intermittent bleeding from her rectum. No blood in the stool. Notices it when she wipes. Also notes over the past day or 2 has developed some diffuse abdominal pressure. No changes in bowel or bladder habits. No fever or chills. No chest pain or shortness of breath. No other complaints at this time. - Related Data Home Medications Medication Instructions Recorded Confirmed QUEtiapine [SEROquel] 100 mg PO HS 04/02/21 10/02/21 Levocetirizine Dihydrochloride 5 mg PO DAILY 10/02/21 10/02/21 [Xyzal] Previous Rx's Medication Instructions Recorded Omeprazole [PriLOSEC] 20 mg PO DAILY #30 cap 10/02/21 Allergies Allergy/AdvReac Type Severity Reaction Status Date / Time Milk Containing Products Allergy Unknown Verified 10/02/21 17:42 (Dairy) [Milk Containing Products] Review of Systems ROS Statement: Those systems with pertinent positive or pertinent negative responses have been documented in the HPI. ROS Other: All systems not noted in ROS Statement are negative. Past Medical History Past Medical History: Hearing Disorder / Deafness, Musculoskeletal Disorder Additional Past Medical History / Comment(s): deaf (reads lips), anemia, had episode of palpitations years ago @[facility]-no current problems, fell & fx. left wrist @home on Sat.-wearing splint History of Any Multi-Drug Resistant Organisms: None Reported Past Surgical History: Section, Tonsillectomy Additional Past Surgical History / Comment(s): C/S x2, left arm surgery Past Anesthesia/Blood Transfusion Reactions: No Reported Reaction, Family History of Problems w/ Anesthesia Additional Past Anesthesia/Blood Transfusion Reaction / Comment(s): mom to slow to wake up Past Psychological History: No Psychological Hx Reported Smoking Status: Current every day smoker Past Alcohol Use History: None Reported Past Drug Use History: Marijuana - Past Family History Mother Family Medical History: Unable to Obtain General Exam Limitations: no limitations General appearance: alert, in no apparent distress Eye exam: Present: normal appearance Neck exam: Present: normal inspection Respiratory exam: Present: normal lung sounds bilaterally Cardiovascular Exam: Present: regular rate, normal rhythm GI/Abdominal exam: Present: soft (Diffuse lower abdominal tenderness to palpation. No rebound guarding or rigidity.) External exam: Present: other (Exam chaperoned by Lucas JONES. Exam shows a nonthrombosed external hemorrhoid) Neurological exam: Present: alert, oriented X3 Skin exam: Present: warm, dry Course Vital Signs 11/12/23 01:02 Temperature 97.8 F Pulse Rate 87 Respiratory 18 Rate Blood Pressure 166/82 O2 Sat by Pulse 98 Oximetry Medical Decision Making - Medical Decision Making Was pt. sent in by a medical professional or institution (, PA, INTERNAL AUDITOR, urgent care, hospital, or correction...) When possible be specific @ -No Did you speak to anyone other than the patient for history (EMS, parent, family, police, friend...)? What history was obtained from this source @ -No Did you review nursing and triage notes (agree or disagree)? Why? @ -I reviewed and agree with nursing and triage notes Were old charts reviewed (outside hosp., previous admission, EMS record, old EKG, old radiological studies, urgent care reports/EKG's, correction records)? Report findings @ -No old charts were reviewed Differential Diagnosis (chest pain, altered mental status, abdominal pain women, abdominal pain men, vaginal bleeding, weakness, fever, dyspnea, syncope, headache, dizziness, GI bleed, back pain, seizure, CVA, palpatations, mental health, musculoskeletal)? @ -Differential Abdominal Pain Women: Appendicitis, Cholecystitis, diverticulosis, ischemic bowel, pancreatitis, hepatitis, UTI, gastroenteritis, AAA, incarcerated hernia, bowel obstruction, constipation, inflammatory bowel, hepatitis, peptic ulcer disease, splenic infarction, perforated viscus, vulvitis, ovarian torsion, PID, kidney stone, placenta abruption, this is not meant to be an all-inclusive list EKG interpreted by me (3pts min.). @ -None X-rays interpreted by me (1pt min.). @ -None done CT interpreted by me (1pt min.). @ -CT abdomen pelvis interpreted me showing no evidence of acute finding. U/S interpreted by me (1pt. min.). @ -None done What testing was considered but not performed or refused? (CT, X-rays, U/S, labs)? Why? @ -None What meds were considered but not given or refused? Why? @ -None Did you discuss the management of the patient with other professionals (professionals i.e. , PA, INTERNAL AUDITOR, lab, RT, psych nurse, social media coordinator, slate roofer helper, teacher, civil preparedness officer, manager case management)? Give summary @ -No Was smoking cessation discussed for >3mins.? @ -No Was critical care preformed (if so, how long)? @ -No Were there social determinants of health that impacted care today? How? (Homelessness, low income, unemployed, alcoholism, drug addiction, transportation, low edu. Level, literacy, decrease access to med. care, nursing home, rehab)? @ -No Was there de-escalation of care discussed even if they declined (Discuss DNR or withdrawal of care, Hospice)? DNR status @ -No What co-morbidities impacted this encounter? (DM, HTN, Smoking, COPD, CAD, Cancer, CVA, ARF, Chemo, Hep., AIDS, mental health diagnosis, sleep apnea, morbid obesity)? @ -None Was patient admitted / discharged? Hospital course, mention meds given and route, prescriptions, significant lab abnormalities, going to OR and other pertinent info. @ -Discharge 48-year-old female not on blood thinners presenting to the ED with complaints of intermittent rectal bleeding when she use the bathroom/wipes for the past few days and most recently started to develop some lower abdominal pressure today as well. Exam did show a nonthrombosed external hemorrhoid. Laboratory studies reviewed. CBC, CMP, UA unremarkable. Occult blood was positive. Bleeding source is likely from her hemorrhoid. Advised increasing fiber and fluid intake. Discussed sitz bath's and Preparation H. Discharged home in stable condition. Discussed return precautions with patient who verbalized agreement. Undiagnosed new problem with uncertain prognosis? @ -No Drug Therapy requiring intensive monitoring for toxicity (Heparin, Nitro, Insulin, Cardizem)? @ -No Were any procedures done? @ -No Diagnosis/symptom? @ -Intermittent rectal bleeding, external hemorrhoid Acute, or Chronic, or Acute on Chronic? @ -Acute Uncomplicated (without systemic symptoms) or Complicated (systemic symptoms)? @ -Uncomplicated Side effects of treatment? @ -No Exacerbation, Progression, or Severe Exacerbation? @ -No Poses a threat to life or bodily function? How? (Chest pain, USA, PA, pneumonia, PE, COPD, DKA, ARF, appy, cholecystitis, CVA, Diverticulitis, Homicidal, Suicidal, threat to staff... and all critical care pts) @ -No - Lab Data Result diagrams: 11/12/23 02:09 11/12/23 02:09 Lab Results 11/12/23 11/12/23 11/12/23 Range/Units 01:31 02:09 02:09 WBC 10.4 (3.8-10.6) k/uL RBC 4.69 (3.80-5.40) m/uL Hgb 14.9 (11.4-16.0) gm/dL Hct 44.6 (34.0-46.0) % MCV 95.2 (80.0-100.0) fL MCH 31.7 (25.0-35.0) pg MCHC 33.3 (31.0-37.0) g/dL RDW 12.4 (11.5-15.5) % Plt Count 239 (150-450) k/uL MPV 7.4 Neutrophils % 58 % Lymphocytes % 30 % Monocytes % 7 % Eosinophils % 2 % Basophils % 1 % Neutrophils # 6.0 (1.3-7.7) k/uL Lymphocytes # 3.1 (1.0-4.8) k/uL Monocytes # 0.7 (0-1.0) k/uL Eosinophils # 0.2 (0-0.7) k/uL Basophils # 0.1 (0-0.2) k/uL Sodium 139 (137-145) mmol/L Potassium 4.4 (3.5-5.1) mmol/L Chloride 109 H (98-107) mmol/L Carbon Dioxide 31 H (22-30) mmol/L Anion Gap -1 mmol/L BUN 7 (7-17) mg/dL Creatinine 0.53 (0.52-1.04) mg/dL Est GFR (CKD-EPI)AfAm >90 (>60 ml/min/1.73 sqM) Est GFR (CKD-EPI)NonAf >90 (>60 ml/min/1.73 sqM) Glucose 76 (74-99) mg/dL Calcium 9.2 (8.4-10.2) mg/dL Total Bilirubin 0.5 (0.2-1.3) mg/dL AST 18 (14-36) U/L ALT 12 (4-34) U/L Alkaline Phosphatase 65 (38-126) U/L Total Protein 6.4 (6.3-8.2) g/dL Albumin 3.7 (3.5-5.0) g/dL Urine Color Urine Appearance (Clear) Urine pH (5.0-8.0) Ur Specific [place] (1.001-1.035) Urine Protein (Negative) Urine Glucose (UA) (Negative) Urine Ketones (Negative) Urine Blood (Negative) Urine Nitrite (Negative) Urine Bilirubin (Negative) Urine Urobilinogen (<2.0) mg/dL Ur Leukocyte Esterase (Negative) Stool Occult Blood Positive H (Negative) 11/12/23 Range/Units 03:17 WBC (3.8-10.6) k/uL RBC (3.80-5.40) m/uL Hgb (11.4-16.0) gm/dL Hct (34.0-46.0) % MCV (80.0-100.0) fL MCH (25.0-35.0) pg MCHC (31.0-37.0) g/dL RDW (11.5-15.5) % Plt Count (150-450) k/uL MPV Neutrophils % % Lymphocytes % % Monocytes % % Eosinophils % % Basophils % % Neutrophils # (1.3-7.7) k/uL Lymphocytes # (1.0-4.8) k/uL Monocytes # (0-1.0) k/uL Eosinophils # (0-0.7) k/uL Basophils # (0-0.2) k/uL Sodium (137-145) mmol/L Potassium (3.5-5.1) mmol/L Chloride (98-107) mmol/L Carbon Dioxide (22-30) mmol/L Anion Gap mmol/L BUN (7-17) mg/dL Creatinine (0.52-1.04) mg/dL Est GFR (CKD-EPI)AfAm (>60 ml/min/1.73 sqM) Est GFR (CKD-EPI)NonAf (>60 ml/min/1.73 sqM) Glucose (74-99) mg/dL Calcium (8.4-10.2) mg/dL Total Bilirubin (0.2-1.3) mg/dL AST (14-36) U/L ALT (4-34) U/L Alkaline Phosphatase (38-126) U/L Total Protein (6.3-8.2) g/dL Albumin (3.5-5.0) g/dL Urine Color Colorless Urine Appearance Clear (Clear) Urine pH 7.5 (5.0-8.0) Ur Specific [place] >1.050 H (1.001-1.035) Urine Protein Negative (Negative) Urine Glucose (UA) Negative (Negative) Urine Ketones Negative (Negative) Urine Blood Negative (Negative) Urine Nitrite Negative (Negative) Urine Bilirubin Negative (Negative) Urine Urobilinogen <2.0 (<2.0) mg/dL Ur Leukocyte Esterase Negative (Negative) Stool Occult Blood (Negative) Disposition Clinical Impression: Hemorrhoid, Rectal bleeding Disposition: HOME SELF-CARE Condition: Good Instructions (If sedation given, give patient instructions): Hemorrhoids (ED), Astringent (On the skin), Sitz Bath (DC), High Fiber Diet (ED) Additional Instructions: Please return to the Emergency Department if symptoms worsen or any other concerns. Please follow-up with your PCP. Is patient prescribed a controlled substance at d/c from ED?: No Referrals: Nik Pratt DO [Primary Care Provider] - 1-2 days Time of Disposition: 03:35
[2023-11-12 02:25] LABS: Basophils # (A) 0.1 k/uL (0-0.2); Basophils % (A) 1 %; Eosinophils # (A) 0.2 k/uL (0-0.7); Eosinophils % (A) 2 %; HCT 44.6 % (34.0-46.0); HGB 14.9 gm/dL (11.4-16.0); Lymphocytes # (A) 3.1 k/uL (1.0-4.8); Lymphocytes % (A) 30 %; MCH 31.7 pg (25.0-35.0); MCHC 33.3 g/dL (31.0-37.0); MCV 95.2 fL (80.0-100.0); Mean Platelet Volume 7.4; Monocytes # (A) 0.7 k/uL (0-1.0); Monocytes % (A) 7 %; Neutrophils % (A) 58 %; Platelet Count 239 k/uL (150-450); RBC 4.69 m/uL (3.80-5.40); RDW 12.4 % (11.5-15.5); WBC 10.4 k/uL (3.8-10.6)
[2023-11-12 02:39] LABS: ALT 12 U/L (4-34); AST 18 U/L (14-36); African American GFR (CKD) >90 (>60 ml/min/1.73 sqM); Albumin 3.7 g/dL (3.5-5.0); Alkaline Phosphatase 65 U/L (38-126); Anion Gap -1 mmol/L; Blood Urea Nitrogen 7 mg/dL (7-17); Calcium 9.2 mg/dL (8.4-10.2); Carbon Dioxide 31 mmol/L (22-30); Chloride 109 mmol/L (98-107); Glucose 76 mg/dL (74-99); Non-African American GFR(CKD) >90 (>60 ml/min/1.73 sqM); Potassium 4.4 mmol/L (3.5-5.1); Sodium 139 mmol/L (137-145); Total Bilirubin 0.5 mg/dL (0.2-1.3); Total Protein 6.4 g/dL (6.3-8.2)
--- NOTE | 2023-11-12 03:24 | CT ---
EXAM: CT Angiography Abdomen and Pelvis Without and With Intravenous Contrast CLINICAL HISTORY: ITS.REASON CT Reason: abdominal pain. blood in the stool TECHNIQUE: Axial computed tomographic angiography images of the abdomen and pelvis without and with intravenous contrast. CTDI is 47.5 mGy and DLP is 1302. 6 mGy-cm. This CT exam was performed using one or more of the following dose reduction techniques: automated exposure control, adjustment of the mA and/or kV according to patient size, and/or use of iterative reconstruction technique. MIP reconstructed images were created and reviewed. COMPARISON: No relevant prior studies available. FINDINGS: VASCULATURE: Aorta: No acute findings. No abdominal aortic aneurysm. No dissection. Celiac trunk and mesenteric arteries: No acute findings. No occlusion or significant stenosis. Renal arteries: No acute findings. No occlusion or significant stenosis. Iliac arteries: No acute findings. No occlusion or significant stenosis. Lung bases: Unremarkable. No mass. No consolidation. Mediastinum: Small hiatal hernia. ABDOMEN: Liver: 1.5 cm simple cyst within the anterior left lobe of the liver. Gallbladder and bile ducts: Unremarkable. No calcified stones. No ductal dilation. Pancreas: Unremarkable. No ductal dilation. No mass. Spleen: Unremarkable. No splenomegaly. Adrenals: 3.7 cm right adrenal adenoma. 2 left adrenal nodules measuring 1.8 cm inferiorly and 2.5 cm superiorly which are stable from prior exam of 04/2020 consistent with a benign finding. Kidneys and ureters: Unremarkable. No obstructing stones. No hydronephrosis. No solid mass. Stomach and bowel: Unremarkable. No obstruction. No mucosal thickening. No active extravasation into the GI tract. PELVIS: Appendix: No findings to suggest acute appendicitis. Bladder: Unremarkable. No stones. No mass. Reproductive: Unremarkable as visualized. ABDOMEN and PELVIS: Intraperitoneal space: Unremarkable. No significant fluid collection. No free air. Bones/joints: Mild T11 compression fracture unchanged from prior study of 04/2020. No dislocation. Soft tissues: Unremarkable. Lymph nodes: Unremarkable. No enlarged lymph nodes. IMPRESSION: No active extravasation into the GI tract.
[2023-11-12 03:29] LABS: Appearance,Urine Clear (Clear); Bilirubin,Urine Negative (Negative); Blood,Urine Negative (Negative); Color,Urine Colorless; Glucose,Urine (UA) Negative (Negative); Ketones,Urine Negative (Negative); Leukocyte Esterase,Urine Negative (Negative); Nitrite,Urine Negative (Negative); PH, Urine 7.5 (5.0-8.0); Protein,Urine Negative (Negative); Specific Gravity,Urine >1.050 (1.001-1.035); Urobilinogen,Urine <2.0 mg/dL (<2.0)
[2023-11-12 04:05] VITALS: BP 150/80; PULSE 82; RESP 20; TEMP 98
== END 2023-11-12 03:39 | disposition home or self-care (01) ==
LOC: EC 00:59
DX: K64.4 Residual hemorrhoidal skin tags (principal); F17.200 Nicotine dependence, unspecified, uncomplicated; F12.90 Cannabis use, unspecified, uncomplicated; Z91.011 Allergy to milk products
CPT/HCPCS: 36415; 80053; 85025; 82272; 81003; 74174; 99285; Q9967

== ENCOUNTER 2024-05-27 14:17 | Emergency (ER) | payer OTHER ==
[2024-05-27 14:23] VITALS: TEMP 97.9
--- NOTE | 2024-05-27 15:26 | ED ---
Chest Pain HPI - General Chief Complaint: Chest Pain Stated Complaint: Chest Pain Time Seen by Provider: 05/27/24 15:19 Source: patient, RN notes reviewed, old records reviewed Mode of arrival: ambulatory Limitations: no limitations - History of Present Illness Initial Comments: This is a 49-year-old female to the ER today. She presents today for evaluation in regards to chest pain left-sided chest pain chest pain over her heart. Having persistent chest pain left-sided chest pain and sharp breast for 3 days no improvement nothing making it worse occasionally some shortness of breath or pain with a deep breath. MD Complaint: chest pain, other (Left-sided chest pain) -: days(s) (3) Pain Location: substernal, left chest Pain Radiation: none Severity: moderate Severity scale (1-10): 4 Quality: sharp Consistency: constant Improves With: nothing Worsens With: nothing Anginal Symptoms: sense of impending doom Other Symptoms: palpitations Treatments Prior to Arrival: none - Related Data Home Medications Medication Instructions Recorded Confirmed Ascorbic Acid/Collagen Hydr 1 cap PO HS 05/27/24 05/27/24 [Collagen Plus Vit C Capsule] Cetirizine HCl [Zyrtec] 10 mg PO HS 05/27/24 05/27/24 Ferrous Sulfate [Feosol] 325 mg PO HS 05/27/24 05/27/24 Krill/Om-3/Dha/Epa/Phospho/Ast 1 cap PO HS 05/27/24 05/27/24 [[place]-3 Krill Oil 300 mg Sfgl] Montelukast [Singulair] 10 mg PO HS 05/27/24 05/27/24 Svw-Lzov-Uiwvv Acid 1 cap PO HS 05/27/24 05/27/24 [-U Capsule (formulary)] QUEtiapine [SEROquel] 200 mg PO HS 05/27/24 05/27/24 Allergies Allergy/AdvReac Type Severity Reaction Status Date / Time Milk Containing Products Allergy Unknown Verified 05/27/24 16:48 (Dairy) [Milk Containing Products] Review of Systems ROS Statement: Those systems with pertinent positive or pertinent negative responses have been documented in the HPI. ROS Other: All systems not noted in ROS Statement are negative. Past Medical History Past Medical History: Hearing Disorder / Deafness, Musculoskeletal Disorder Additional Past Medical History / Comment(s): deaf (reads lips), anemia, had episode of palpitations years ago @[facility]-no current problems, fell & fx. left wrist @home on Sat.-wearing splint History of Any Multi-Drug Resistant Organisms: None Reported Past Surgical History: Section, Tonsillectomy Additional Past Surgical History / Comment(s): C/S x2, left arm surgery Past Anesthesia/Blood Transfusion Reactions: No Reported Reaction, Family History of Problems w/ Anesthesia Additional Past Anesthesia/Blood Transfusion Reaction / Comment(s): mom to slow to wake up Past Psychological History: No Psychological Hx Reported Smoking Status: Current every day smoker Past Alcohol Use History: None Reported Past Drug Use History: Marijuana - Past Family History Mother Family Medical History: Unable to Obtain General Exam Limitations: no limitations General appearance: alert, in no apparent distress Head exam: Present: atraumatic, normocephalic, normal inspection Eye exam: Present: normal appearance, PERRL, EOMI. Absent: scleral icterus, conjunctival injection, periorbital swelling ENT exam: Present: normal exam, mucous membranes moist Neck exam: Present: normal inspection. Absent: tenderness, meningismus, lymphadenopathy Respiratory exam: Present: normal lung sounds bilaterally. Absent: respiratory distress, wheezes, rales, rhonchi, stridor Cardiovascular Exam: Present: regular rate, normal rhythm, normal heart sounds. Absent: systolic murmur, diastolic murmur, rubs, gallop, clicks GI/Abdominal exam: Present: soft, normal bowel sounds. Absent: distended, tenderness, guarding, rebound, rigid Extremities exam: Present: normal inspection, full ROM, normal capillary refill. Absent: tenderness, pedal edema, joint swelling, calf tenderness Back exam: Present: normal inspection Neurological exam: Present: alert, oriented X3, CN II-XII intact Psychiatric exam: Present: normal affect, normal mood Skin exam: Present: warm, dry, intact, normal color. Absent: rash Course Vital Signs 05/27/24 05/27/24 05/27/24 14:19 15:30 17:01 Temperature 97.9 F Pulse Rate 87 82 76 Respiratory 15 11 L 18 Rate Blood Pressure 131/70 144/77 154/57 O2 Sat by Pulse 98 96 98 Oximetry 05/27/24 18:00 Temperature Pulse Rate 65 Respiratory 17 Rate Blood Pressure 154/57 O2 Sat by Pulse Oximetry - Reevaluation(s) Reevaluation #1: 05/27/24 16:47 Medical records reviewed Reevaluation #2: 05/27/24 16:50 Patient symptoms unchanged here in the ER still with chest pain Reevaluation #3: 05/27/24 16:50 Patient informed of results and questions answered Reevaluation #4: Was pt. sent in by a medical professional or institution (, [facility], MUSEUM GUIDE, urgent care, hospital, or half-way...) When possible be specific @ -no Did you speak to anyone other than the patient for history (EMS, parent, family, police, friend...)? What history was obtained from this source @ -no Did you review nursing and triage notes (agree or disagree)? Why? @ -agree Are old charts reviewed (outside hosp., previous admission, EMS record, old EKG, old radiological studies, urgent care reports/EKG's, half-way records)? R eport findings @ -yes Differential Diagnosis (chest pain, altered mental status, abdominal pain women, abdominal pain men, vaginal bleeding, weakness, fever, dyspnea, syncope, headache, dizziness, GI bleed, back pain, seizure, CVA, palpatations, mental health, musculoskeletal)? @ -prior EKG interpreted by me (3pts min.). @ -yes X-rays interpreted by me (1pt min.). @ -yes negative for acute disease CT interpreted by me (1pt min.). @ -no U/S interpreted by me (1pt. min.). @ -no What testing was considered but not performed or refused? (CT, X-rays, U/S, labs)? Why? @ -none What meds were considered but not given or refused? Why? @ -none Did you discuss the management of the patient with other professionals (professionals i.e. , [facility], MUSEUM GUIDE, lab, RT, psych nurse, social media senior associate, body specialist, teacher, property officer, case specialist)? Give summary @ -no Was smoking cessation discussed for >3mins.? @ -no Was critical care preformed (if so, how long)? @ -no Were there social determinants of health that impacted care today? How? (Homelessness, low income, unemployed, alcoholism, drug addiction, transportation, low edu. Level, literacy, decrease access to med. care, retirement, rehab)? @ -none Was there de-escalation of care discussed even if they declined (Discuss DNR or withdrawal of care, Hospice)? DNR status @ -no What co-morbidities impacted this encounter? (DM, HTN, Smoking, COPD, CAD, Cancer, CVA, ARF, Chemo, Hep., AIDS, mental health diagnosis, sleep apnea, morbid obesity)? @ -none Was patient admitted / discharged? Hospital course, mention meds given and route, prescriptions, significant lab abnormalities, going to OR and other pertinent info. @ - 49 female to ER for evaluation of chest pain patient will be discharged home with persistent chest pain here in the ER but troponin negative x 2 now requiring pain medication Discharge Undiagnosed new problem with uncertain prognosis? @ -no Drug Therapy requiring intensive monitoring for toxicity (Heparin, Nitro, Insulin, Cardizem)? @ -no Were any procedures done? @ -no Diagnosis/symptom? @ -Both Acute, or Chronic, or Acute on Chronic? @ -Acute Uncomplicated (without systemic symptoms) or Complicated (systemic symptoms)? @ -Complicated Side effects of treatment? @ -no Exacerbation, Progression, or Severe Exacerbation? @ -exacerbation Poses a threat to life or bodily function? How? (Chest pain, [place], [place], pneumonia, PE, COPD, DKA, ARF, appy, cholecystitis, CVA, Diverticulitis, Homicidal, Suicidal, threat to staff... and all critical care pts) @ -yes with chest pain chest pain Reevaluation #5: Differential Chest Pain: Stable Angina, Unstable Angina, STEMI, NSTEMI Aortic Dissection, Pneumothorax, Musculoskeletal, Esophageal Spasm GERD, Cholecystitis, Pancreatitis, Zoster, this is not meant to be an all-inclusive list. Chest Pain MDM - MDM 49 female to ER for evaluation of chest pain patient will be discharged home wit h persistent chest pain here in the ER but troponin negative x 2 now requiring pain medication Disposition Clinical Impression: Atypical chest pain, Chest pain Disposition: HOME SELF-CARE Condition: Fair Instructions (If sedation given, give patient instructions): Chest Pain (ED) Is patient prescribed a controlled substance at d/c from ED?: No Referrals: Fantasma Muñoz, [Primary Care Provider] - 1-2 days Time of Disposition: 18:30
[2024-05-27 16:03] LABS: Basophils # (A) 0.1 k/uL (0-0.2); Basophils % (A) 0 %; Eosinophils # (A) 0.2 k/uL (0-0.7); Eosinophils % (A) 2 %; HCT 45.8 % (34.0-46.0); HGB 14.9 gm/dL (11.4-16.0); Lymphocytes % (A) 27 %; MCH 30.7 pg (25.0-35.0); MCHC 32.6 g/dL (31.0-37.0); MCV 94.2 fL (80.0-100.0); Mean Platelet Volume 7.2; Monocytes # (A) 0.8 k/uL (0-1.0); Monocytes % (A) 7 %; Neutrophils % (A) 62 %; Platelet Count 335 k/uL (150-450); RBC 4.86 m/uL (3.80-5.40); RDW 12.3 % (11.5-15.5); WBC 11.2 k/uL (3.8-10.6)
--- NOTE | 2024-05-27 16:08 | XR ---
EXAMINATION TYPE: XR chest 2V DATE OF EXAM: 05/27/2024 COMPARISON: 02/27/2020 HISTORY: 49-year-old female with left-sided chest pain TECHNIQUE: PA and lateral views FINDINGS: The heart is normal size. Aorta within normal limits. Mild interstitial density is unchanged. There i s hyperinflation. No consolidation or pleural effusion. IMPRESSION: COPD and chronic changes. No definite acute process. [facility], Workstation: [facility], 05/27/2024 4:06 PM
[2024-05-27 16:19] LABS: INR 0.8 (<1.2); Partial Thromboplastin Time 22.1 sec (22.0-30.0); Prothrombin Time 9.6 sec (10.0-12.5)
[2024-05-27 16:22] LABS: ALT 11 U/L (4-34); African American GFR (CKD) >90 (>60 ml/min/1.73 sqM); Albumin 3.9 g/dL (3.5-5.0); Anion Gap 4 mmol/L; Blood Urea Nitrogen 12 mg/dL (7-17); Calcium 9.2 mg/dL (8.4-10.2); Carbon Dioxide 29 mmol/L (22-30); Chloride 106 mmol/L (98-107); Glucose 93 mg/dL (74-99); Lipase 55 U/L (23-300); Non-African American GFR(CKD) >90 (>60 ml/min/1.73 sqM); Sodium 139 mmol/L (137-145); Total Bilirubin 0.4 mg/dL (0.2-1.3); Total Protein 6.5 g/dL (6.3-8.2)
[2024-05-27 16:28] LABS: NT-Pro-B-Type Natriuretic Pept 67 pg/mL
[2024-05-27 16:35] LABS: Potassium 4.4 mmol/L (3.5-5.1)
[2024-05-27 16:36] LABS: AST 25 U/L (14-36); Alkaline Phosphatase 57 U/L (38-126); Magnesium 2.1 mg/dL (1.6-2.3)
[2024-05-27] MEDS: KETOROLAC 15 MG/ML 1 ML VIAL IVP STA (16:57)
[2024-05-27] MEDS: SODIUM CHLORIDE 0.9% 1,000 ML IV STA (16:57)
[2024-05-27 17:03] VITALS: BP 154/57
[2024-05-27] MEDS: MORPHINE SULFATE 4 MG/ML SYRINGE IV STA (17:52)
[2024-05-27] MEDS: ONDANSETRON 4 MG/2 ML VIAL IVP STA (17:52)
[2024-05-27 18:06] VITALS: PULSE 65; RESP 17
== END 2024-05-27 19:26 | disposition home or self-care (01) ==
LOC: EC 14:17
CPT/HCPCS: 36415; 71046; 80053; 83690; 83735; 83880; 84484; 85025; 85379; 85610; 85730; 93005; 96361; 96374; 99285